=== PATIENT | male | born 1970 ===

== ENCOUNTER 2017-07-26 10:13 | Inpatient (IN) | payer MEDICARE, MEDICAID ==
[~2017-07-26] VITALS: Ht 165.1 cm; Wt 59.0 kg
[2017-07-26] MEDS ORDERED: DuoNeb 0.5-3(2.5)mg/3ml neb HHN PRN (15:00)
[2017-07-26] MEDS ORDERED: Nitroglycerin Subl 0.4mg tab (Bottle Of 25) SL PRN (15:00)
[2017-07-26] MEDS ORDERED: Miralax 17gm pkt ORAL PRN (15:00)
[2017-07-26] MEDS: Morphine Sulfate 2mg/ml Inj IVP PRN (15:59)
[2017-07-26 16:00] VITALS: BP 123/76
[2017-07-26] MEDS: Cefepime HCl 2 GM in D5W 110 ML IV SCH (17:22)
--- NOTE | 2017-07-26 19:07 | History & Physical ---
History and Physical History & Physicial Dictated for Int Med-Dr Sheridan no. [id number]. APRIL VERGARA Jul 26, 2017 19:07
--- NOTE | 2017-07-26 19:14 | Cardiology Progress Note ---
Assessment/Plan Assessment/Plan The patient is seen and examined, full consult note will be dictated shortly. Objective Last 24 Hour Vital Signs Date Time Temp Pulse Resp B/P (MAP) Pulse Ox O2 Delivery O2 Flow Rate FiO2 07/26/17 16:00 98.4 89 18 123/76 99 Room Air Intake and Output 07/26/17 07/27/17 19:00 07:00 Intake Total 350 ml Balance 350 ml Intake Oral 240 ml IV Total 110 ml SHELLIE ORTIZ Jul 26, 2017 19:14
[2017-07-26 20:35] LABS: TROPONIN I < 0.30 ng/mL (<=0.30)
[2017-07-26 21:00] VITALS: BP 142/90
--- NOTE | 2017-07-26 21:49 | Consultation ---
Consult Note Consult Note ID DIC # [id number] EMERITA CLAUDIO M.D. Jul 26, 2017 21:49
[2017-07-26] MEDS: Tobradex Opth Susp 2.5ml LEFT EYE SCH (22:00)
[2017-07-26] MEDS: Aspirin EC 81mg tab ORAL SCH (22:36)
[2017-07-26] MEDS: Heparin 5000 units/ml inj SUBQ SCH (22:37)
--- NOTE | 2017-07-26 23:03 | Consultation ---
History of Present Illness General Date patient seen: Jul 26, 2017 Referring physician: Dr Tinoco Reason for Consultation: Inpatient management Present Illness HPI 47 year old male with hx of HIV [place] [facility] of right eye pain and swelling. he had a trauma to the forehead during playing volleyball a few ew days ago , the patient developed swelling of the forehead extending to the left orbital area associated with swelling of the upper lid. He was seen by ophthalmology and ID in ER already and admitted for further treatment. Allergies: Coded Allergies: NO KNOWN ALLERGIES (Verified Allergy, Unknown, 07/26/17) Patient History Healthcare decision maker N Resuscitation status Full Code Advanced Directive on File Past Medical/Surgical History Past Medical/Surgical History: (1) HIV disease Review of Systems All Other Systems: negative except mentioned in HPI Physical Exam General Appearance: WD/WN, no apparent distress Lines, tubes and drains: peripheral, central line HEENT: other - L orbital swelling, no spontanous openning of left eye Neck: non-tender Respiratory/Chest: chest wall non-tender, lungs clear Cardiovascular/Chest: normal peripheral pulses, normal rate Abdomen: normal bowel sounds, soft Extremities: normal range of motion, non-pitting Last 24 Hour Vital Signs Date Time Temp Pulse Resp B/P (MAP) Pulse Ox O2 Delivery O2 Flow Rate FiO2 07/26/17 21:00 98.0 88 21 142/90 98 Room Air 07/26/17 20:31 88 16 Room Air 07/26/17 16:00 98.4 89 18 123/76 99 Room Air Intake and Output 07/26/17 07/27/17 19:00 07:00 Intake Total 350 ml Balance 350 ml Intake Oral 240 ml IV Total 110 ml Laboratory Tests Test 07/26/17 20:00 Troponin I < 0.30 ng/mL (<=0.30) Height (Feet): 5 Height (Inches): 5.00 Weight (Pounds): 130 Medications Current Medications Medications (Trade) Dose Ordered Sig/Kelvin Route PRN Reason Start Time Stop Time Status Last Admin Dose Admin Acetaminophen (Tylenol) 650 mg Q4H PRN ORAL fever 07/26/17 15:00 08/25/17 14:59 Albuterol/ Ipratropium (DuoNeb 0.5-3(2.5)mg/3ml) 3 ml Q4H PRN HHN Shortness of Breath 07/26/17 15:00 07/31/17 14:59 Aspirin (Ecotrin) 81 mg DAILY ORAL 07/26/17 21:00 08/25/17 20:59 07/26/17 22:36 Cefepime HCl 2 gm/ Dextrose 110 ml @ 220 mls/hr Q12HR@0400,1600 IV 07/26/17 17:30 08/02/17 17:29 07/26/17 17:22 Clopidogrel Bisulfate (Plavix) 75 mg DAILY ORAL 07/26/17 21:00 08/25/17 20:59 07/26/17 22:36 Dextrose (Dextrose 50%) STAT PRN IV Hypoglycemia 07/26/17 15:00 08/25/17 14:59 Heparin Sodium (Porcine) (Heparin 5000 units/ml) 5,000 units EVERY 12 HOURS SUBQ 07/26/17 21:00 08/25/17 20:59 07/26/17 22:37 Morphine Sulfate (Morphine Sulfate) 2 mg Q4H PRN IVP Moderate Pain (Pain Scale 4-6) 07/26/17 15:00 08/02/17 14:59 07/26/17 15:59 Nitroglycerin (Ntg) 0.4 mg Every 5 Minutes PRN SL Prn Chest Pain 07/26/17 15:00 08/25/17 14:59 Ondansetron HCl (Zofran) 4 mg Q6H PRN IVP Nausea & Vomiting 07/26/17 15:00 08/25/17 14:59 Polyethylene Glycol (Miralax) 17 gm DAILYPRN PRN ORAL Constipation 07/26/17 15:00 08/25/17 14:59 Temazepam (Restoril) 15 mg HSPRN PRN ORAL Insomnia 07/26/17 15:00 08/02/17 14:59 07/26/17 22:15 Tobramycin/ Dexamethasone (Tobradex Opth Susp) 1 drop FOUR TIMES A DAY LEFT EYE 07/26/17 22:00 08/25/17 21:59 07/26/17 22:00 Vancomycin HCl (Vanco rx to dose) 1 ea DAILY PRN MISC PRN RX PROTOCOL 07/26/17 17:00 08/25/17 16:59 Vancomycin HCl 1 gm/Dextrose 250 ml @ 167.007 mls/hr Q8HR@0200,1000,1800 IVPB 07/26/17 18:00 07/31/17 17:59 07/26/17 18:06 Assessment/Plan Problem List: (1) Cellulitis ICD Codes: L03.90 - Cellulitis, unspecified SNOMED: 735602146 (2) HIV disease ICD Codes: B20 - Human immunodeficiency virus [HIV] disease SNOMED: 31552286 Assessment/Plan IV antibiotics by Id check cultures check wbc symptomatic treatment KOKO CHUA Jul 26, 2017 23:03
[2017-07-27] VITALS: BP 126/78
[2017-07-27] MEDS ORDERED: Vancomycin 1 GM in D5W 275 ML IV SCH (00:30)
[2017-07-27] MEDS: Cefepime HCl 2 GM in D5W 110 ML IV SCH ×2 (03:51→16:01)
[2017-07-27 04:00] VITALS: BP 124/78
--- NOTE | 2017-07-27 04:30 | History and Physical Report ---
DATE OF ADMISSION: 07/26/2017 CHIEF COMPLAINT: The patient is a 47-year-old male, who presents with chief complaint of left eye pain and swelling. HISTORY OF PRESENT ILLNESS: Began 8 days prior to admission. The patient scratched his forehead on a tree branch. The patient states the left eye has become increasingly swollen. This morning he awoke and was unable to open his eye. His eye was swollen shut. The patient denies discharge. The patient denies fevers or chills. The patient initially presented to [facility] emergency room. The patient is transferred to [facility] for insurance purposes. The patient presents today with chief complaint of left orbital cellulitis. PAST MEDICAL HISTORY: Significant for: 1. Human immunodeficiency virus, diagnosed in 1989. Current T-cell count is 475. Viral load is undetectable. 2. Prediabetes. 3. Hypercholesterolemia. 4. Hypertension. 5. Coronary artery disease, status post stent placement x4. PAST SURGICAL HISTORY: The patient denies. CURRENT MEDICATIONS: 1. Losartan 50 mg one tablet p.o. daily. 2. Pravachol 40 mg one tablet p.o. daily. 3. Gemfibrozil 600 mg one tablet p.o. twice daily. 4. Vitamin B-complex. 5. Isentress 400 mg one tablet p.o. twice daily. 6. Multivitamin with iron one tablet p.o. daily. 7. Brilinta 90 mg one tablet p.o. daily. 8. Aspirin 325 mg one tablet p.o. daily. 9. Plavix 75 mg one tablet p.o. daily. 10. Norvir 100 mg one tablet p.o. daily. 11. Truvada 200/300 mg one tablet p.o. daily. 12. Nitroglycerin 0.4 mg sublingual p.r.n. ALLERGIES: To Viram[employer]. SOCIAL HISTORY: The patient is a . The patient's of breast cancer 4 years previously. The patient admits to tobacco use of one-quarter pack per day. The patient admits to occasional alcohol use. The patient denies other drug abuse. REVIEW OF SYSTEMS: Constitutional: The patient denies weight loss or weight gain. The patient denies fevers or chills. HEENT: The patient denies ear or throat pain. The patient complains of left eye pain and swelling as above. Cardiovascular: The patient denies palpitations or chest pain. Chest: The patient denies wheeze or shortness of breath. Abdominal: The patient denies nausea, vomiting, diarrhea, or constipation. Genitourinary: The patient denies dysuria or increased frequency of urination. Neuromuscular: The patient denies seizures or generalized weakness. PHYSICAL EXAMINATION: VITAL SIGNS: Temperature 98.4 degrees, respirations 18, pulse 89, and blood pressure 150/76. GENERAL: The patient is well-developed, well-nourished male, in no apparent distress. HEENT: Eyes, pupils on the right is equal and responsive to light and accommodation. Extraocular movements are intact. Left eye is swollen shut. Left eye pupil is equal and responsive to light and accommodation. Extraocular movements are intact. NECK: Supple without lymphadenopathy. CHEST: Lungs are clear to auscultation bilaterally without wheezes or rales. CARDIOVASCULAR: Regular rhythm and rate. S1 and S2 are normal without murmurs, rubs, or gallops. ABDOMEN: Soft, nontender, and nondistended. Positive bowel sounds. No evidence of hepatosplenomegaly. Currently, no rebound or guarding noted. EXTREMITIES: Negative for clubbing, cyanosis, or edema. RECTAL: Refused. GENITAL: Refused. NEUROLOGIC: Cranial nerves II through XII are grossly intact without focal deficits. Motor strength is 5/5 bilaterally. Deep tendon reflexes are 2+ plantar. LABORATORY AND DIAGNOSTIC DATA: CT scan of the head without contrast revealed left periorbital soft tissue swelling and chronic sinus disease. There was no acute intracranial hemorrhage or fracture. WBC 8.8, hemoglobin 16.6, hematocrit 46.5, and platelets 230,000. Sodium 135, potassium 3.6, chloride 103, CO2 23, BUN 10, creatinine 0.82, and glucose 104. Liver function tests are within normal limits. ASSESSMENT: This is a 47-year-old male: 1. Left periorbital cellulitis. 2. Human immunodeficiency virus. 3. Hypertension. 4. Hypercholesterolemia. 5. Coronary artery disease. TREATMENT: 1. Left periorbital cellulitis. The patient has been started empirically on intravenous vancomycin and cefepime. An Ophthalmology consultation was obtained with Dr. Sauer. An Infectious Disease consultation is pending with Dr. Green given the patient is human immunodeficiency virus positive. 2. Hypertension. Continue Cozaar as above. 3. Hypercholesteremia. Continue Lopid and Pravachol as above. 4. Coronary artery disease. Continue aspirin and Plavix as above. Michel Tinoco M.D. DR: ARMAND JOB#: [id number] CC:
--- NOTE | 2017-07-27 05:00 | Consultation ---
DATE OF CONSULTATION: 07/26/2017 CARDIOLOGY CONSULTATION CONSULTING PHYSICIAN: Aman Thurman M.D. REFERRING PHYSICIAN: Michel Tinoco M.D. REASON FOR CONSULTATION: Management of chest pain. History of Present Illness: The patient is a very unfortunate 47-year-old gentleman who is transferred from [facility] where he visited initially for left periorbital pain and swelling for several days. Apparently, the left orbital pain started after he had an injury to the left periorbital area while playing basketball. The patient was diagnosed with cellulitis from [facility]. He also had some chest pain and in view of history of coronary artery disease and history of percutaneous coronary intervention in the past, Cardiology consultation was made at the request of Dr. Tinoco for evaluation and management of this condition. He states that the chest pain was somewhat related to his left eye pain. He states that he uses alcohol only on the weekends and does not do drugs or tobacco. His initial evaluation in the [facility] showed negative troponin-I level of less than 0.2. His beta-natriuretic peptide was also . A 12-lead electrocardiogram showed sinus rhythm at a rate of 89 with no ectopy or acute ST changes. He was transferred to this facility for further evaluation and management due to insurance purposes. PAST MEDICAL HISTORY: 1. History of HIV positive. 2. History of CAD, status post four stents placement, two at [facility] and two at [facility]. 3. Hypertension. 4. Hyperlipidemia. 5. Prediabetes. Medications: List of medications, losartan 50 mg p.o. daily, pravastatin 40 mg p.o. daily, gemfibrozil 600 mg twice daily, vitamin B-complex one tablet daily, Isentress 400 mg twice daily, multivitamin one tablet p.o. daily, fish oil 4000 mg p.o. daily, Brilinta 90 mg daily, aspirin 325 mg daily, Plavix 75 mg daily, Norvir 100 mg p.o. daily, Truvada 200-300 mg one tablet daily, and nitroglycerin 0.4 mg sublingual q.5 minutes p.r.n. chest pain. Social History: He is single, and uses alcohol on the weekends. Denies any tobacco or illicit drug use. He is a former smoker, although quit in January 2009. In the records from [facility], he admitted to using beer six packs per day. Review Of Systems: HEENT: Denies any headache. Pain in the left eye, swollen and pressure over the left orbital area. There is also edema around the orbital area. Constitutional: Denies any fever, chills, night sweats, or weight loss. Cardiovascular: Chest pain as mentioned above, sharp, short lasting. Currently, chest pain free. Denies any shortness of breath, PND, orthopnea, or leg swelling. Pulmonary: Denies any cough, hemoptysis, or wheezing. Gastrointestinal: Denies any nausea, vomiting, diarrhea, constipation, abdominal pain, or GI bleeding. Genitourinary: Denies any hematuria, dysuria, or incontinence. Neurology: Denies any motor dysfunction, sensory deficit, or altered speech. PHYSICAL EXAMINATION: Vital Signs: Blood pressure is 123/76, pulse of 89, temperature 98.4 degrees Fahrenheit, respirations of 18, and O2 saturation 99% on room air. General: This is a very pleasant 47-year-old gentleman, in no apparent respiratory distress. Alert and oriented x4. HEENT: Atraumatic and normocephalic. Pupils are equal, round, and reactive to light and accommodation. Extraocular muscles are intact. There is swelling, edema, redness, and warmth associated with vesicular rash over the left frontal area of the scalp extending to the left temporal area. The entire left globe is edematous. Neck: JVP is less than 5 cm. No carotid bruits. Carotid upstrokes 2+ bilaterally. Cardiovascular: Normal S1 and S2. Regular rate and rhythm. No murmurs, gallops, or rubs. PMI is at the fourth intercostal space at the midclavicular line. LUNGS: Clear to auscultation bilaterally. Abdomen: Soft, nontender, and nondistended. No hepatosplenomegaly. Positive bowel sounds. EXTREMITIES: No evidence of edema, clubbing, or cyanosis. Laboratory and diagnostic Data: Laboratory findings, WBC was 8.8, hemoglobin was 16.6, hematocrit 46.5, and platelet count was 230,000. Sodium was 135, potassium is 3.6, chloride 103, bicarbonate 23, BUN of 10, and creatinine of 0.82. Troponin-I less than 0.02. INR is 0.9. BNP was 15. Lipase is 29. ECG, sinus rhythm at a rate of 89 with no ectopy and no acute ST-T wave abnormalities. Head CT showed periorbital soft tissue swelling, sinusitis, and no acute intracranial injury. Assessment And Plan: The patient is a very unfortunate 47-year-old gentleman, seen in Cardiology consultation at the request of Dr. Tinoco. Chest pain, atypical, most likely secondary to the injury that he had during the basketball game, had trauma to the chest wall. He does not appear to have ischemic heart disease at this point. A 12-lead electrocardiogram done at [facility] showed no evidence of ST or T-wave abnormalities. His first troponin was negative. We will continue with another troponin-I level as well as 12-lead electrocardiogram. Lipid panel will be assessed in the morning. I noticed in the list of medications that the patient is on triple agents including Brilinta, high-dose aspirin, and Plavix. This combination increased dramatically the risk of bleeding. I would put a hold on Brilinta and decrease dose of aspirin to 81 mg daily. He should even continue with dual-antiplatelet therapy with low-dose aspirin. I would like to thank, Dr. Tinoco, for allowing me to participate in the care of this patient. Aman Thurman M.D. DR: FLORENTINO JOB#: [id number] CC:
--- NOTE | 2017-07-27 05:30 | Consultation ---
DATE OF CONSULTATION: INFECTIOUS DISEASES CONSULTATION CONSULTING PHYSICIAN: Yovany Green M.D. REFERRING PHYSICIAN: Ede Sheridan M.D. Reason For Consultation: Evaluation of the patient for periorbital cellulitis, HIV, and antibiotic management. History Of Present Illness: The patient is a 47-year-old male with multiple medical problems as listed below, who was admitted to this medical center due to the facial swelling. An Infectious Diseases consultation has been requested for further evaluation of the patient and antibiotic management. The patient had trauma to the forehead during playing volleyball. Few days later, the patient developed swelling of the forehead extending to the left orbital area associated with swelling of the upper lip. The patient came to the hospital for further care. PAST MEDICAL HISTORY: 1. History of heart condition, ? in nature of that. 2. History of hyperlipidemia. 3. History of diabetes. 4. History of alcohol abuse. 5. History of human immunodeficiency virus (CD4 count over 400 and undetectable viral load) on HIV medication. ALLERGIES: No known drug allergies. SOCIAL HISTORY: As mentioned above. FAMILY HISTORY: Noncontributory. Review Of Systems: A 10-point review was done and except what is mentioned has been negative. PHYSICAL EXAMINATION: Vital Signs: Temperature is 98.4 degrees, pulse 86, respiratory rate 18, and blood pressure 140/90. HEENT: The patient has erythema and tenderness over the left forehead extending to the upper eyelid, which is swollen. Eyes did not appear to have conjunctivitis. NECK: No lymphadenopathy. CHEST: Coarse breathing sounds. HEART: S1 and S2. ABDOMEN: Soft and nontender. EXTREMITIES: No cyanosis at this time. NEUROLOGIC: Awake and alert. Nonfocal. LABORATORY DATA: Labs are pending. ASSESSMENT: The patient is a 47-year-old male with: 1. Periorbital/facial cellulitis due to the fall and pain over the forehead. 2. Wound over the forehead without drainage. PLAN: 1. We will continue the patient on IV vancomycin and cefepime. 2. Monitor CBC. 3. Monitor BMP. 4. We will ask the patient to bring his home HIV medication to resume. Based on the patient's clinical course and labs, we will do further recommendations. Thank you, Dr. Sheridan, for allowing me to participate in the care of this patient. I will follow the patient with you during this hospitalization. Yovany Green M.D. DR: KAITLYN JOB#: [id number] CC:
[2017-07-27 06:21] LABS: BASOPHILS % (AUTO) 1.2 % (0.0-2.0); EOSINOPHILS % (AUTO) 1.5 % (0.0-3.0); LYMPHOCYTES % (AUTO) 18.4 % (20.0-45.0); MEAN CORPUSCULAR HEMOGLOBIN 35.9 PG (27.0-31.0); MEAN CORPUSCULAR HGB CONC 36.6 G/DL (32.0-36.0); MEAN CORPUSCULAR VOLUME 98 FL (80-99); MEAN PLATELET VOLUME 6.5 FL (6.5-10.1); NEUTROPHILS % (AUTO) 64.9 % (45.0-75.0); PLATELET COUNT 217 K/UL (150-450); RED BLOOD COUNT 4.82 M/UL (4.70-6.10); RED CELL DISTRIBUTION WIDTH 10.1 % (11.6-14.8)
[2017-07-27 06:41] LABS: ALANINE AMINOTRANSFERASE 17 U/L (3-41); ALBUMIN/GLOBULIN RATIO 1.2 (1.0-2.7); ANION GAP 10 (5-15); ASPARTATE AMINO TRANSFERASE 22 U/L (5-40); CALCIUM 9.8 mg/dL (8.6-10.2); CARBON DIOXIDE 27 mEQ/L (20-30); CHLORIDE 98 mEQ/L (98-107); CREATININE 0.9 mg/dL (0.7-1.2); GLOMERULAR FILTRATION RATE > 60 mL/min (>60); HEMOLYSIS 1; POTASSIUM 4.4 mEQ/L (3.4-4.9); SODIUM 135 mEQ/L (135-145); TOTAL PROTEIN 7.8 g/dL (6.6-8.7)
[2017-07-27 08:31] VITALS: BP 137/69
[2017-07-27] MEDS ORDERED: NS 550ML IV ONE (08:44)
[2017-07-27] MEDS ORDERED: Tubing IV Secondary IV ONE (08:44)
[2017-07-27] MEDS: Aspirin EC 81mg tab ORAL SCH ×2 (09:00→09:47)
[2017-07-27] MEDS: Heparin 5000 units/ml inj SUBQ SCH ×3 (09:00→20:47)
[2017-07-27] MEDS: Tobradex Opth Susp 2.5ml LEFT EYE SCH ×4 (09:46→20:46)
[2017-07-27] MEDS: Morphine Sulfate 2mg/ml Inj IVP PRN (09:47)
[2017-07-27 11:37] VITALS: BP 116/75
--- NOTE | 2017-07-27 15:42 | Pulmonology Progress Note ---
Assessment/Plan Problems: (1) Cellulitis (2) HIV disease Assessment/Plan still not able to open the eye continue abc check electrolytes Subjective ROS Limited/Unobtainable: No Constitutional: Reports: no symptoms HEENT: Repors: no symptoms Cardiovascular: Reports: no symptoms Gastrointestinal/Abdominal: Reports: no symptoms Genitourinary: Reports: no symptoms Allergies: Coded Allergies: NO KNOWN ALLERGIES (Verified Allergy, Unknown, 07/26/17) Objective Last 24 Hour Vital Signs Date Time Temp Pulse Resp B/P (MAP) Pulse Ox O2 Delivery O2 Flow Rate FiO2 07/27/17 11:37 98.2 80 19 116/75 96 Room Air 07/27/17 10:17 98.2 07/27/17 08:31 98.3 71 19 137/69 96 Room Air 07/27/17 07:15 73 16 Room Air 07/27/17 06:16 97.5 07/27/17 04:00 101.1 90 18 124/78 99 Room Air 07/27/17 00:00 97.9 95 20 126/78 96 Room Air 07/26/17 21:00 98.0 88 21 142/90 98 Room Air 07/26/17 20:31 88 16 Room Air 07/26/17 16:00 98.4 89 18 123/76 99 Room Air Intake and Output 07/27/17 07/28/17 19:00 07:00 Intake Total 560 ml Output Total 500 ml Balance 60 ml Intake Oral 560 ml Output Urine Total 500 ml General Appearance: WD/WN, no acute distress HEENT: normocephalic, atraumatic Respiratory/Chest: chest wall non-tender, lungs clear Cardiovascular: normal peripheral pulses Abdomen: normal bowel sounds, soft, non tender Extremities: no cyanosis, no clubbing Skin: no rash Neurologic/Psychiatric: manager rfid II-XII grossly normal, abnormal gait Lymphatic: no neck adenopathy Laboratory Tests 07/26/17 20:00: Troponin I < 0.30 07/27/17 05:30: White Blood Count 8.0, Red Blood Count 4.82, Hemoglobin 17.3, Hematocrit 47.3, Mean Corpuscular Volume 98, Mean Corpuscular Hemoglobin 35.9H, Mean Corpuscular Hemoglobin Concent 36.6H, Red Cell Distribution Width 10.1L, Platelet Count 217 , Mean Platelet Volume 6.5, Neutrophils (%) (Auto) 64.9, Lymphocytes (%) (Auto) 18.4L, Monocytes (%) (Auto) 14.0H, Eosinophils (%) (Auto) 1.5, Basophils (%) ( Auto) 1.2, Sodium Level 135, Potassium Level 4.4, Chloride Level 98, Carbon Dioxide Level 27, Anion Gap 10, Blood Urea Nitrogen 7, Creatinine 0.9, Estimat Glomerular Filtration Rate > 60, Glucose Level 162H, Calcium Level 9.8, Total Bilirubin 0.5, Aspartate Amino Transf (AST/SGOT) 22, Alanine Aminotransferase ( ALT/SGPT) 17, Alkaline Phosphatase 98, Total Protein 7.8, Albumin 4.3, Globulin 3.5, Albumin/Globulin Ratio 1.2 Current Medications Medications (Trade) Dose Ordered Sig/Kelvin Route PRN Reason Start Time Stop Time Status Last Admin Dose Admin Acetaminophen (Tylenol) 650 mg Q4H PRN ORAL fever 07/26/17 15:00 08/25/17 14:59 07/27/17 05:17 Albuterol/ Ipratropium (DuoNeb 0.5-3(2.5)mg/3ml) 3 ml Q4H PRN HHN Shortness of Breath 07/26/17 15:00 07/31/17 14:59 Aspirin (ASA) 81 mg DAILY ORAL 07/28/17 09:00 08/27/17 08:59 Cefepime HCl 2 gm/ Dextrose 110 ml @ 220 mls/hr Q12HR@0400,1600 IV 07/26/17 17:30 08/02/17 17:29 07/27/17 03:51 Clopidogrel Bisulfate (Plavix) 75 mg DAILY ORAL 07/26/17 21:00 08/25/17 20:59 07/26/17 22:36 Dextrose (Dextrose 50%) STAT PRN IV Hypoglycemia 07/26/17 15:00 08/25/17 14:59 Heparin Sodium (Porcine) (Heparin 5000 units/ml) 5,000 units EVERY 12 HOURS SUBQ 07/26/17 21:00 08/25/17 20:59 07/26/17 22:37 Morphine Sulfate (Morphine Sulfate) 2 mg Q4H PRN IVP Moderate Pain (Pain Scale 4-6) 07/26/17 15:00 08/02/17 14:59 07/27/17 09:47 Nitroglycerin (Ntg) 0.4 mg Every 5 Minutes PRN SL Prn Chest Pain 07/26/17 15:00 08/25/17 14:59 Ondansetron HCl (Zofran) 4 mg Q6H PRN IVP Nausea & Vomiting 07/26/17 15:00 08/25/17 14:59 Polyethylene Glycol (Miralax) 17 gm DAILYPRN PRN ORAL Constipation 07/26/17 15:00 08/25/17 14:59 Temazepam (Restoril) 15 mg HSPRN PRN ORAL Insomnia 07/26/17 15:00 08/02/17 14:59 07/26/17 22:15 Tobramycin/ Dexamethasone (Tobradex Opth Susp) 1 drop FOUR TIMES A DAY LEFT EYE 07/26/17 22:00 08/25/17 21:59 07/27/17 12:41 Vancomycin HCl (Vanco rx to dose) 1 ea DAILY PRN MISC PRN RX PROTOCOL 07/26/17 17:00 08/25/17 16:59 Vancomycin HCl 1 gm/Dextrose 250 ml @ 167.007 mls/hr Q8HR@0200,1000,1800 IVPB 07/26/17 18:00 07/31/17 17:59 07/27/17 09:47 KOKO CHUA Jul 27, 2017 15:42
[2017-07-27 16:07] VITALS: BP 141/96
--- NOTE | 2017-07-27 17:53 | Cardiology Report ---
APPROVED REPORT EXAM: Two-dimensional and M-mode echocardiogram with Doppler and color Doppler. INDICATION CAD M-Mode DIMENSIONS IVSd1.8 (0.7-1.1cm)Left Atrium (MM)4.0 (1.6-4.0cm) LVDd3.7 (3.5-5.6cm)Aortic Root3.0 (2.0-3.7cm) PWd1.6 (0.7-1.1cm)Aortic Cusp Exc.1.7 (1.5-2.0cm) LVDs2.6 (2.5-4.0cm) PWs2.1 cm Normal left ventricular chamber size. Septal hypokinesis. Left ventricular ejection fraction estimated to be 45-50 %. Mild left ventricular hypertrophy. Anterior Echo-free space, may be due to pericardial fat or effusion. All other cardiac chamber sizes are within normal limits. Moderate focal aortic valve sclerosis with adequate cusp excursion. Thickened mitral valve leaflets with normal excursion. Mitral annulus and aortic root calcification. Pulmonic valve not well visualized. Normal tricuspid valve structure. IVC at normal size with physiologic collapse. A color flow and spectral Doppler study was performed and revealed: Trace aortic regurgitation. Trace mitral regurgitation. reduced left ventricular relaxation c/w mild diastolic dysfunction. Trace tricuspid regurgitation. Tricuspid systolic velocities suggests peak right ventricular systolic pressure of 16 mmHg.
--- NOTE | 2017-07-27 18:00 | Internal Med Progress Note ---
Subjective Date of Service: Jul 27, 2017 Physician Name Michel Vergara Attending Physician Ede Sheridan MD Current Medications Medications (Trade) Dose Ordered Sig/Kelvin Route PRN Reason Start Time Stop Time Status Last Admin Dose Admin Acetaminophen (Tylenol) 650 mg Q4H PRN ORAL fever 07/26/17 15:00 08/25/17 14:59 07/27/17 05:17 Albuterol/ Ipratropium (DuoNeb 0.5-3(2.5)mg/3ml) 3 ml Q4H PRN HHN Shortness of Breath 07/26/17 15:00 07/31/17 14:59 Aspirin (ASA) 81 mg DAILY ORAL 07/28/17 09:00 08/27/17 08:59 Cefepime HCl 2 gm/ Dextrose 110 ml @ 220 mls/hr Q12HR@0400,1600 IV 07/26/17 17:30 08/02/17 17:29 07/27/17 16:01 Clopidogrel Bisulfate (Plavix) 75 mg DAILY ORAL 07/26/17 21:00 08/25/17 20:59 07/26/17 22:36 Dextrose (Dextrose 50%) STAT PRN IV Hypoglycemia 07/26/17 15:00 08/25/17 14:59 Heparin Sodium (Porcine) (Heparin 5000 units/ml) 5,000 units EVERY 12 HOURS SUBQ 07/26/17 21:00 08/25/17 20:59 07/26/17 22:37 Morphine Sulfate (Morphine Sulfate) 2 mg Q4H PRN IVP Moderate Pain (Pain Scale 4-6) 07/26/17 15:00 08/02/17 14:59 07/27/17 09:47 Nitroglycerin (Ntg) 0.4 mg Every 5 Minutes PRN SL Prn Chest Pain 07/26/17 15:00 08/25/17 14:59 Ondansetron HCl (Zofran) 4 mg Q6H PRN IVP Nausea & Vomiting 07/26/17 15:00 08/25/17 14:59 Polyethylene Glycol (Miralax) 17 gm DAILYPRN PRN ORAL Constipation 07/26/17 15:00 08/25/17 14:59 Temazepam (Restoril) 15 mg HSPRN PRN ORAL Insomnia 07/26/17 15:00 08/02/17 14:59 07/26/17 22:15 Tobramycin/ Dexamethasone (Tobradex Opth Susp) 1 drop FOUR TIMES A DAY LEFT EYE 07/26/17 22:00 08/25/17 21:59 07/27/17 12:41 Vancomycin HCl (Vanco rx to dose) 1 ea DAILY PRN MISC PRN RX PROTOCOL 07/26/17 17:00 08/25/17 16:59 Vancomycin HCl 1 gm/Dextrose 250 ml @ 167.007 mls/hr Q8HR@0200,1000,1800 IVPB 07/26/17 18:00 07/31/17 17:59 07/27/17 09:47 Allergies: Coded Allergies: NO KNOWN ALLERGIES (Verified Allergy, Unknown, 07/26/17) ROS Limited/Unobtainable: No Constitutional: Reports: no symptoms HEENT: Reports: eye pain Cardiovascular: Reports: no symptoms Respiratory: Reports: no symptoms Gastrointestinal/Abdominal: Reports: no symptoms Genitourinary: Reports: no symptoms Neurologic/Psychiatric: Reports: no symptoms Subjective 47 YO M admitted with left eye pain and swelling. Now periorbital cellulitis. Cover for Int Med-Dr Sheridan Objective Last Vital Signs Date Time Temp Pulse Resp B/P (MAP) Pulse Ox O2 Delivery O2 Flow Rate FiO2 07/27/17 16:07 97.6 64 21 141/96 95 Room Air General Appearance: WD/WN, no apparent distress, alert EENT: PERRL/EOMI, other - Left periorbital swelling Neck: non-tender, normal alignment, supple, normal inspection Cardiovascular: normal peripheral pulses, normal rate, regular rhythm, regularly irregular, no gallop/murmur, no JVD Respiratory/Chest: chest wall non-tender, lungs clear, normal breath sounds, no respiratory distress, no accessory muscle use Abdomen: normal bowel sounds, non tender, soft, no organomegaly, no mass Extremities: normal range of motion 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, no motor/sensory deficits Skin: normal pigmentation, warm/dry Laboratory Tests Test 07/26/17 20:00 07/27/17 05:30 07/27/17 17:00 Troponin I < 0.30 ng/mL (<=0.30) White Blood Count 8.0 K/UL (4.8-10.8) Red Blood Count 4.82 M/UL (4.70-6.10) Hemoglobin 17.3 G/DL (14.2-18.0) Hematocrit 47.3 % (42.0-52.0) Mean Corpuscular Volume 98 FL (80-99) Mean Corpuscular Hemoglobin 35.9 PG (27.0-31.0) H Mean Corpuscular Hemoglobin Concent 36.6 G/DL (32.0-36.0) H Red Cell Distribution Width 10.1 % (11.6-14.8) L Platelet Count 217 K/UL (150-450) Mean Platelet Volume 6.5 FL (6.5-10.1) Neutrophils (%) (Auto) 64.9 % (45.0-75.0) Lymphocytes (%) (Auto) 18.4 % (20.0-45.0) L Monocytes (%) (Auto) 14.0 % (1.0-10.0) H Eosinophils (%) (Auto) 1.5 % (0.0-3.0) Basophils (%) (Auto) 1.2 % (0.0-2.0) Sodium Level 135 mEQ/L (135-145) Potassium Level 4.4 mEQ/L (3.4-4.9) Chloride Level 98 mEQ/L (98-107) Carbon Dioxide Level 27 mEQ/L (20-30) Anion Gap 10 (5-15) Blood Urea Nitrogen 7 mg/dL (7-23) Creatinine 0.9 mg/dL (0.7-1.2) Estimat Glomerular Filtration Rate > 60 mL/min (>60) Glucose Level 162 mg/dL (74-106) H Calcium Level 9.8 mg/dL (8.6-10.2) Total Bilirubin 0.5 mg/dL (0.0-1.2) Aspartate Amino Transf (AST/SGOT) 22 U/L (5-40) Alanine Aminotransferase (ALT/SGPT) 17 U/L (3-41) Alkaline Phosphatase 98 U/L (40-129) Total Protein 7.8 g/dL (6.6-8.7) Albumin 4.3 g/dL (3.5-5.2) Globulin 3.5 g/dL Albumin/Globulin Ratio 1.2 (1.0-2.7) Vancomycin Level Trough 13.0 ug/mL (5.0-12.0) H Intake and Output 07/27/17 07/28/17 19:00 07:00 Intake Total 560 ml Output Total 500 ml Balance 60 ml Intake Oral 560 ml Output Urine Total 500 ml Assessment/Plan Problem List: (1) Periorbital cellulitis of left eye Assessment & Plan: See ID note. See ophthalmology note. Cont IV vanco adn cefepime. Cont tobradex eye drops (2) HIV (human immunodeficiency virus infection) Assessment & Plan: Cont HAART per ID (3) HTN (hypertension) (4) Hypercholesteremia (5) Coronary artery disease Assessment & Plan: Cont plavix and ASA. Status: progressing MICHEL VERGARA Jul 27, 2017 18:00
--- NOTE | 2017-07-27 18:27 | Infectious Diseases Prog Note ---
Assessment/Plan Assessment/Plan ASSESSMENT: The patient is a 47-year-old male with: History of human immunodeficiency virus (CD4 count over 400 and undetectable viral load) on HIV medication. Periorbital/facial cellulitis due to the fall and pain over the forehead. Wound over the forehead without drainage. Facial shingles History of heart condition, ? in nature of that. Hyperlipidemia. DM history of alcohol abuse. PLAN: will continue the patient on IV vancomycin d# 2 and Acyclovir d# , DC Cefepime. will resume his home HIV medication to resume.( Tivicay and Descovy ) Monitor CBC. Monitor BMP. Isolation ( contact and Airborne ) Subjective Constitutional: Denies: no symptoms, fever, chills, fatigue, anorexia, drenching sweats, other Allergies: Coded Allergies: NO KNOWN ALLERGIES (Verified Allergy, Unknown, 07/26/17) Objective Vital Signs Last 24 Hour Vital Signs Date Time Temp Pulse Resp B/P (MAP) Pulse Ox O2 Delivery O2 Flow Rate FiO2 07/27/17 16:07 97.6 64 21 141/96 95 Room Air 07/27/17 11:37 98.2 80 19 116/75 96 Room Air 07/27/17 10:17 98.2 07/27/17 08:31 98.3 71 19 137/69 96 Room Air 07/27/17 07:15 73 16 Room Air 07/27/17 06:16 97.5 07/27/17 04:00 101.1 90 18 124/78 99 Room Air 07/27/17 00:00 97.9 95 20 126/78 96 Room Air 07/26/17 21:00 98.0 88 21 142/90 98 Room Air 07/26/17 20:31 88 16 Room Air Height (Feet): 5 Height (Inches): 5.00 Weight (Pounds): 130 HEENT: anicteric Respiratory/Chest: no respiratory distress Cardiovascular: regularly irregular Abdomen: non distended Skin: rash - facial : Vesicles Laboratory Tests Test 07/26/17 20:00 07/27/17 05:30 07/27/17 17:00 Troponin I < 0.30 ng/mL (<=0.30) White Blood Count 8.0 K/UL (4.8-10.8) Red Blood Count 4.82 M/UL (4.70-6.10) Hemoglobin 17.3 G/DL (14.2-18.0) Hematocrit 47.3 % (42.0-52.0) Mean Corpuscular Volume 98 FL (80-99) Mean Corpuscular Hemoglobin 35.9 PG (27.0-31.0) H Mean Corpuscular Hemoglobin Concent 36.6 G/DL (32.0-36.0) H Red Cell Distribution Width 10.1 % (11.6-14.8) L Platelet Count 217 K/UL (150-450) Mean Platelet Volume 6.5 FL (6.5-10.1) Neutrophils (%) (Auto) 64.9 % (45.0-75.0) Lymphocytes (%) (Auto) 18.4 % (20.0-45.0) L Monocytes (%) (Auto) 14.0 % (1.0-10.0) H Eosinophils (%) (Auto) 1.5 % (0.0-3.0) Basophils (%) (Auto) 1.2 % (0.0-2.0) Sodium Level 135 mEQ/L (135-145) Potassium Level 4.4 mEQ/L (3.4-4.9) Chloride Level 98 mEQ/L (98-107) Carbon Dioxide Level 27 mEQ/L (20-30) Anion Gap 10 (5-15) Blood Urea Nitrogen 7 mg/dL (7-23) Creatinine 0.9 mg/dL (0.7-1.2) Estimat Glomerular Filtration Rate > 60 mL/min (>60) Glucose Level 162 mg/dL (74-106) H Calcium Level 9.8 mg/dL (8.6-10.2) Total Bilirubin 0.5 mg/dL (0.0-1.2) Aspartate Amino Transf (AST/SGOT) 22 U/L (5-40) Alanine Aminotransferase (ALT/SGPT) 17 U/L (3-41) Alkaline Phosphatase 98 U/L (40-129) Total Protein 7.8 g/dL (6.6-8.7) Albumin 4.3 g/dL (3.5-5.2) Globulin 3.5 g/dL Albumin/Globulin Ratio 1.2 (1.0-2.7) Vancomycin Level Trough 13.0 ug/mL (5.0-12.0) H Current Medications Medications (Trade) Dose Ordered Sig/Kelvin Route PRN Reason Start Time Stop Time Status Last Admin Dose Admin Acetaminophen (Tylenol) 650 mg Q4H PRN ORAL fever 07/26/17 15:00 08/25/17 14:59 07/27/17 05:17 Albuterol/ Ipratropium (DuoNeb 0.5-3(2.5)mg/3ml) 3 ml Q4H PRN HHN Shortness of Breath 07/26/17 15:00 07/31/17 14:59 Aspirin (ASA) 81 mg DAILY ORAL 07/28/17 09:00 08/27/17 08:59 Cefepime HCl 2 gm/ Dextrose 110 ml @ 220 mls/hr Q12HR@0400,1600 IV 07/26/17 17:30 08/02/17 17:29 07/27/17 16:01 Clopidogrel Bisulfate (Plavix) 75 mg DAILY ORAL 07/26/17 21:00 08/25/17 20:59 07/26/17 22:36 Dextrose (Dextrose 50%) STAT PRN IV Hypoglycemia 07/26/17 15:00 08/25/17 14:59 Heparin Sodium (Porcine) (Heparin 5000 units/ml) 5,000 units EVERY 12 HOURS SUBQ 07/26/17 21:00 08/25/17 20:59 07/26/17 22:37 Morphine Sulfate (Morphine Sulfate) 2 mg Q4H PRN IVP Moderate Pain (Pain Scale 4-6) 07/26/17 15:00 08/02/17 14:59 07/27/17 09:47 Nitroglycerin (Ntg) 0.4 mg Every 5 Minutes PRN SL Prn Chest Pain 07/26/17 15:00 08/25/17 14:59 Ondansetron HCl (Zofran) 4 mg Q6H PRN IVP Nausea & Vomiting 07/26/17 15:00 08/25/17 14:59 Polyethylene Glycol (Miralax) 17 gm DAILYPRN PRN ORAL Constipation 07/26/17 15:00 08/25/17 14:59 Temazepam (Restoril) 15 mg HSPRN PRN ORAL Insomnia 07/26/17 15:00 08/02/17 14:59 07/26/17 22:15 Tobramycin/ Dexamethasone (Tobradex Opth Susp) 1 drop FOUR TIMES A DAY LEFT EYE 07/26/17 22:00 08/25/17 21:59 07/27/17 18:19 Vancomycin HCl (Vanco rx to dose) 1 ea DAILY PRN MISC PRN RX PROTOCOL 07/26/17 17:00 08/25/17 16:59 Vancomycin HCl 1 gm/Dextrose 250 ml @ 167.007 mls/hr Q8HR@0200,1000,1800 IVPB 07/26/17 18:00 07/31/17 17:59 07/27/17 18:19 EMERITA CLAUDIO M.D. Jul 27, 2017 18:27
[2017-07-27 20:27] VITALS: BP 124/82
[2017-07-27] MEDS ORDERED: TIVICAY50 MG ORAL (21:49)
[2017-07-27] MEDS ORDERED: DESCOVY 200-251 EACH PO (21:49)
[2017-07-27] MEDS ORDERED: Acyclovir 500mg Vial IV ONE (22:56)
[2017-07-27] MEDS: Acyclovir 750 MG in NS 110 ML IV SCH (23:21)
[2017-07-28] VITALS: BP 129/75
[2017-07-28 04:00] VITALS: BP 114/72
[2017-07-28 06:46] LABS: EOSINOPHILS % (AUTO) 2.1 % (0.0-3.0); LYMPHOCYTES % (AUTO) 24.6 % (20.0-45.0); MEAN CORPUSCULAR HEMOGLOBIN 34.5 PG (27.0-31.0); MEAN CORPUSCULAR VOLUME 99 FL (80-99); MEAN PLATELET VOLUME 6.3 FL (6.5-10.1); MONOCYTES % (AUTO) 16.8 % (1.0-10.0); NEUTROPHILS % (AUTO) 55.5 % (45.0-75.0); PLATELET COUNT 190 K/UL (150-450); RED BLOOD COUNT 4.64 M/UL (4.70-6.10); RED CELL DISTRIBUTION WIDTH 9.9 % (11.6-14.8); WHITE BLOOD COUNT 7.2 K/UL (4.8-10.8)
[2017-07-28 07:12] LABS: ALANINE AMINOTRANSFERASE 18 U/L (3-41); ALBUMIN/GLOBULIN RATIO 1.2 (1.0-2.7); ANION GAP 14 (5-15); ASPARTATE AMINO TRANSFERASE 24 U/L (5-40); CALCIUM 9.1 mg/dL (8.6-10.2); CARBON DIOXIDE 25 mEQ/L (20-30); CHLORIDE 97 mEQ/L (98-107); CREATININE 0.9 mg/dL (0.7-1.2); CRP QUANT 3.7 mg/dL (< 0.5); GLOMERULAR FILTRATION RATE > 60 mL/min (>60); HEMOLYSIS 5; MAGNESIUM 2.1 mg/dL (1.7-2.5); POTASSIUM 3.7 mEQ/L (3.4-4.9); SODIUM 136 mEQ/L (135-145); TOTAL PROTEIN 7.2 g/dL (6.6-8.7)
[2017-07-28 08:00] VITALS: BP 120/71
[2017-07-28 08:38] LABS: ERYTHROCYTE SEDIMENTATION RATE 20 MM/HR (0-15)
[2017-07-28] MEDS ORDERED: [UNRECOGNIZED DRUG - REMARK] ORAL ONE (09:00)
[2017-07-28] MEDS: Aspirin Baby 81mg ORAL SCH ×2 (09:00→10:30)
[2017-07-28] MEDS ORDERED: Dolutegravir Sodium 50mg tab ORAL SCH (09:00)
[2017-07-28] MEDS: Heparin 5000 units/ml inj SUBQ SCH ×3 (09:00→21:00)
[2017-07-28] MEDS: Acyclovir 750 MG in NS 110 ML IV SCH ×2 (10:27→16:54)
[2017-07-28] MEDS: Tobradex Opth Susp 2.5ml LEFT EYE SCH ×4 (10:29→20:58)
[2017-07-28] MEDS: DESCOVY ORAL SCH (10:29)
[2017-07-28 12:00] VITALS: BP 125/68
--- NOTE | 2017-07-28 12:41 | Progress Note ---
DATE: 07/27/2017 History of present illness: The patient states that he has pain on the scalp. It looks just about the same since yesterday. There is no change in vision. The left eye feels better since he has been using the drops. Medications: Cefepime, albuterol or DuoNeb, nitroglycerin, Zofran, MiraLAX, Restoril p.r.n., TobraDex eye drops q.i.d. to the left eye, and IV vancomycin. PHYSICAL EXAMINATION: Eye: The vision in the right eye uncorrected is 20/50 and in the left eye also 20/50. The pupils are 4 to 3 OU without pupillary defect and the extraocular muscles are intact in the bilateral eye. The external eye exam revealed obvious vesicle formation along the left upper lid, forehead, as well as scalp. The erythema again did not cross the midline in these areas moving to the vesicles. There is decreased soft tissue swelling at the periocular area in the left eye. The right periocular area was within normal limits. The conjunctiva is clear and sclera and iris within normal limits. In the left eye, there was decreased injection. The cornea appeared clear bilaterally. The anterior chamber is deep and quiet bilaterally. The iris movement is within normal limits bilaterally. ASSESSMENT AND PLAN: 1. Periocular cellulitis secondary to zoster involving the D1 dermatome. The patient is to continue on his IV antibiotics as well as TobraDex eye drops and I believe or another type of IV. I will defer to Infectious Diseases for possibly adding acyclovir to his treatment for this zoster cellulitis. 2. Decreased periocular soft tissue swelling and decreased conjunctivitis in the left eye. Continue using TobraDex eye drops. I will continue to follow while the patient is in-house. Thank you very much for allowing me to participate in this very nice patient's care. If you have any questions, please do not hesitate to contact me. Michel Sauer M.D. DR: BJ JOB#: [id number] CC:
--- NOTE | 2017-07-28 12:41 | Consultation ---
DATE OF CONSULTATION: 07/26/2017 OPHTHALMOLOGY CONSULTATION Requesting Physician: This consultation is at the request of Dr. Ede Sheridan. History Of Present Illness: The patient is a very pleasant 47-year-old male, who approximately one week ago accidentally scratched his left forehead on the tree branch. He states that this caused some swelling and erythema along the forehead area that spread to his left eyelid periocularly and has been associated with discharge in the left eye. He complains of some tingling sensations on the scalp and forehead, but noticed some tenderness over the left forehead. He was initially seen at [facility] emergency room, but transferred to [facility] for further care. PAST OCULAR HISTORY: None. PAST FAMILY OCULAR HISTORY: None. PAST MEDICAL HISTORY: 1. HIV positive with T-cell count currently at 475. 2. Hypertension. 3. Coronary artery disease. 4. Hypercholesterolemia. PAST SURGICAL HISTORY: None. Medications: Upon admission, losartan, Pravachol, Brilinta, aspirin, Plavix, Norvir, Truvada, and nitroglycerin. ALLERGIES: Viramune. Social History: The patient is a . He has a tobacco history of approximately one-quarter pack per day. He drinks alcohol socially and there is no history of drug abuse. Review Of Systems: A 12-point review of systems is otherwise negative. PHYSICAL EXAMINATION: Eye: His vision in the right eye was approximately 20/60 and in the left eye approximately 20/200. The pupils were pupillary defect and the extraocular muscle movement is intact and without pain or diplopia. The lens in the right eye were within normal limits, but on the left eye, there is severe periocular soft tissue swelling with erythema. This was associated with erythema along the forehead and slightly on the scalp. None of this crossed the midline though. There were no vesicles present, but there were small bumps on the skin. The conjunctiva and sclera on the right eye was within normal limits, but there was a moderate injection nasally in the left eye at discharge. The cornea appeared clear in the right eye and it was a very difficult healing in the left eye secondary to the marked soft tissue periocular swelling. The iris and lens were within normal limits bilaterally. ASSESSMENT AND PLAN: 1. Cellulitis, periocular, left eye. None of the erythema across the midline, it is most probably zoster but yet there are no vesicles on the forehead or scalp. The patient significantly feels that this cellulitis is secondary to being scratched by a tree branch though. This may be just coincidental. 2. Conjunctivitis, left eye. Started the patient on Zyvox eye drops q.i.d. I will discuss this with the primary care team and also help monitor while the patient is in-house. Thank you very much for allowing me to participate in this very nice patient's care. If you have any questions, please do not hesitate to contact me. Michel Sauer M.D. DR: Christine JOB#: [id number] CC:
[2017-07-28] MEDS ORDERED: CALCIUM CARBON600 M1 PO (13:29)
[2017-07-28] MEDS ORDERED: LOSARTAN POTASS50 MG ORAL (13:29)
[2017-07-28] MEDS ORDERED: VITAMIN B COMP1 EAC5 PO (13:29)
[2017-07-28] MEDS ORDERED: FISH OIL 1,0001 EAC4 ORAL (13:29)
[2017-07-28] MEDS ORDERED: THERA-M TABLET1 EACH PO (13:29)
[2017-07-28] MEDS ORDERED: ASPIRIN EC81 MG ORAL (13:29)
[2017-07-28] MEDS ORDERED: VITAMIN D-32000 UNI1 PO (13:29)
[2017-07-28] MEDS ORDERED: PRAVASTATIN SOD20 M1 ORAL (13:29)
--- NOTE | 2017-07-28 15:37 | Pulmonology Progress Note ---
Assessment/Plan Problems: (1) Cellulitis (2) HIV disease Assessment/Plan opens the eye continue abc check electrolytes improving all reviewed keep isolation Subjective ROS Limited/Unobtainable: No Constitutional: Reports: no symptoms HEENT: Repors: no symptoms Respiratory: Reports: no symptoms Cardiovascular: Reports: no symptoms Allergies: Coded Allergies: NO KNOWN ALLERGIES (Verified Allergy, Unknown, 07/26/17) Objective Last 24 Hour Vital Signs Date Time Temp Pulse Resp B/P (MAP) Pulse Ox O2 Delivery O2 Flow Rate FiO2 07/28/17 12:00 98.9 95 18 125/68 98 Room Air 07/28/17 08:00 98.8 98 18 120/71 98 Room Air 07/28/17 07:20 82 20 Room Air 21 07/28/17 04:00 98.6 86 20 114/72 97 Room Air 07/28/17 00:00 98.9 87 20 129/75 97 Room Air 07/27/17 20:27 100.0 88 20 124/82 99 Room Air 07/27/17 19:15 79 16 Room Air 07/27/17 19:02 97.9 07/27/17 16:07 97.6 64 21 141/96 95 Room Air Objective feeling better, can open the eye General Appearance: WD/WN HEENT: normocephalic, atraumatic Respiratory/Chest: chest wall non-tender, lungs clear Cardiovascular: normal peripheral pulses, regular rhythm Abdomen: normal bowel sounds, non distended Skin: no ulcers Laboratory Tests 07/27/17 17:00: Vancomycin Level Trough 13.0H 07/28/17 04:50: White Blood Count 7.2, Red Blood Count 4.64L, Hemoglobin 16.0, Hematocrit 45.7, Mean Corpuscular Volume 99, Mean Corpuscular Hemoglobin 34.5H, Mean Corpuscular Hemoglobin Concent 35.0, Red Cell Distribution Width 9.9L, Platelet Count 190, Mean Platelet Volume 6.3L, Neutrophils (%) (Auto) 55.5, Lymphocytes (%) (Auto) 24.6, Monocytes (%) (Auto) 16.8H, Eosinophils (%) (Auto) 2.1, Basophils (%) ( Auto) 1.0, Erythrocyte Sedimentation Rate 20H, Sodium Level 136, Potassium Level 3.7, Chloride Level 97L, Carbon Dioxide Level 25, Anion Gap 14, Blood Urea Nitrogen 6L, Creatinine 0.9, Estimat Glomerular Filtration Rate > 60, Glucose Level 120H, Calcium Level 9.1, Phosphorus Level 3.0, Magnesium Level 2.1 , Total Bilirubin 0.4, Aspartate Amino Transf (AST/SGOT) 24, Alanine Aminotransferase (ALT/SGPT) 18, Alkaline Phosphatase 81, C-Reactive Protein, Quantitative 3.7H, Total Protein 7.2, Albumin 4.0, Globulin 3.2, Albumin/ Globulin Ratio 1.2 Current Medications Medications (Trade) Dose Ordered Sig/Kelvin Route PRN Reason Start Time Stop Time Status Last Admin Dose Admin Acetaminophen (Tylenol) 650 mg Q4H PRN ORAL fever 07/26/17 15:00 08/25/17 14:59 07/27/17 05:17 Acyclovir 750 mg/ Sodium Chloride 110 ml @ 110 mls/hr Q8H IV 07/28/17 00:00 08/27/17 00:00 07/28/17 10:27 Albuterol/ Ipratropium (DuoNeb 0.5-3(2.5)mg/3ml) 3 ml Q4H PRN HHN Shortness of Breath 07/26/17 15:00 07/31/17 14:59 Aspirin (ASA) 81 mg DAILY ORAL 07/28/17 09:00 08/27/17 08:59 Clopidogrel Bisulfate (Plavix) 75 mg DAILY ORAL 07/26/17 21:00 08/25/17 20:59 07/26/17 22:36 Dextrose (Dextrose 50%) STAT PRN IV Hypoglycemia 07/26/17 15:00 08/25/17 14:59 Heparin Sodium (Porcine) (Heparin 5000 units/ml) 5,000 units EVERY 12 HOURS SUBQ 07/26/17 21:00 08/25/17 20:59 07/27/17 20:47 Morphine Sulfate (Morphine Sulfate) 2 mg Q4H PRN IVP Moderate Pain (Pain Scale 4-6) 07/26/17 15:00 08/02/17 14:59 07/27/17 09:47 Nitroglycerin (Ntg) 0.4 mg Every 5 Minutes PRN SL Prn Chest Pain 07/26/17 15:00 08/25/17 14:59 Ondansetron HCl (Zofran) 4 mg Q6H PRN IVP Nausea & Vomiting 07/26/17 15:00 08/25/17 14:59 Patient Own Medication (Patient's Own Med) 1 ea DAILY ORAL 07/28/17 09:00 08/27/17 08:59 07/28/17 10:29 Patient Own Medication (Patient's Own Med) 1 ea DAILY ORAL 07/28/17 09:00 08/27/17 08:59 07/28/17 10:30 Polyethylene Glycol (Miralax) 17 gm DAILYPRN PRN ORAL Constipation 07/26/17 15:00 08/25/17 14:59 Temazepam (Restoril) 15 mg HSPRN PRN ORAL Insomnia 07/26/17 15:00 08/02/17 14:59 07/26/17 22:15 Tobramycin/ Dexamethasone (Tobradex Opth Susp) 1 drop FOUR TIMES A DAY LEFT EYE 07/26/17 22:00 08/25/17 21:59 07/28/17 12:48 Vancomycin HCl (Vanco rx to dose) 1 ea DAILY PRN MISC PRN RX PROTOCOL 07/26/17 17:00 08/25/17 16:59 Vancomycin HCl 1 gm/Dextrose 250 ml @ 167.007 mls/hr Q8HR@0200,1000,1800 IVPB 07/26/17 18:00 07/31/17 17:59 07/28/17 12:48 KOKO CHUA Jul 28, 2017 15:37
[2017-07-28 16:00] VITALS: BP 109/73
--- NOTE | 2017-07-28 18:37 | Infectious Diseases Prog Note ---
Assessment/Plan Assessment/Plan ASSESSMENT: The patient is a 47-year-old male with: History of human immunodeficiency virus (CD4 count over 400 and undetectable viral load) on HIV medication. Periorbital/facial cellulitis due to the fall and pain over the forehead. Wound over the forehead without drainage. Facial shingles History of heart condition, ? in nature of that. Hyperlipidemia. DM history of alcohol abuse. PLAN: will continue the patient on IV vancomycin d# 3 / and Acyclovir d# 2 / 10 , ( 07/27 : Cefepimed# 2 ) will resume his home HIV medication to resume.( Tivicay and Descovy ) Monitor CBC. Monitor BMP. Isolation ( contact and Airborne ) Subjective Constitutional: Denies: no symptoms, fever, chills, fatigue, anorexia, drenching sweats, other Allergies: Coded Allergies: NO KNOWN ALLERGIES (Verified Allergy, Unknown, 07/26/17) Objective Vital Signs Last 24 Hour Vital Signs Date Time Temp Pulse Resp B/P (MAP) Pulse Ox O2 Delivery O2 Flow Rate FiO2 07/28/17 16:00 98.4 85 18 109/73 98 Room Air 07/28/17 12:00 98.9 95 18 125/68 98 Room Air 07/28/17 08:00 98.8 98 18 120/71 98 Room Air 07/28/17 07:20 82 20 Room Air 21 07/28/17 04:00 98.6 86 20 114/72 97 Room Air 07/28/17 00:00 98.9 87 20 129/75 97 Room Air 07/27/17 20:27 100.0 88 20 124/82 99 Room Air 07/27/17 19:15 79 16 Room Air 07/27/17 19:02 97.9 Height (Feet): 5 Height (Inches): 5.00 Weight (Pounds): 130 HEENT: anicteric Respiratory/Chest: normal breath sounds Cardiovascular: regularly irregular Abdomen: non distended Laboratory Tests Test 07/28/17 04:50 White Blood Count 7.2 K/UL (4.8-10.8) Red Blood Count 4.64 M/UL (4.70-6.10) L Hemoglobin 16.0 G/DL (14.2-18.0) Hematocrit 45.7 % (42.0-52.0) Mean Corpuscular Volume 99 FL (80-99) Mean Corpuscular Hemoglobin 34.5 PG (27.0-31.0) H Mean Corpuscular Hemoglobin Concent 35.0 G/DL (32.0-36.0) Red Cell Distribution Width 9.9 % (11.6-14.8) L Platelet Count 190 K/UL (150-450) Mean Platelet Volume 6.3 FL (6.5-10.1) L Neutrophils (%) (Auto) 55.5 % (45.0-75.0) Lymphocytes (%) (Auto) 24.6 % (20.0-45.0) Monocytes (%) (Auto) 16.8 % (1.0-10.0) H Eosinophils (%) (Auto) 2.1 % (0.0-3.0) Basophils (%) (Auto) 1.0 % (0.0-2.0) Erythrocyte Sedimentation Rate 20 MM/HR (0-15) H Sodium Level 136 mEQ/L (135-145) Potassium Level 3.7 mEQ/L (3.4-4.9) Chloride Level 97 mEQ/L (98-107) L Carbon Dioxide Level 25 mEQ/L (20-30) Anion Gap 14 (5-15) Blood Urea Nitrogen 6 mg/dL (7-23) L Creatinine 0.9 mg/dL (0.7-1.2) Estimat Glomerular Filtration Rate > 60 mL/min (>60) Glucose Level 120 mg/dL (74-106) H Calcium Level 9.1 mg/dL (8.6-10.2) Phosphorus Level 3.0 mg/dL (2.5-4.8) Magnesium Level 2.1 mg/dL (1.7-2.5) Total Bilirubin 0.4 mg/dL (0.0-1.2) Aspartate Amino Transf (AST/SGOT) 24 U/L (5-40) Alanine Aminotransferase (ALT/SGPT) 18 U/L (3-41) Alkaline Phosphatase 81 U/L (40-129) C-Reactive Protein, Quantitative 3.7 mg/dL (< 0.5) H Total Protein 7.2 g/dL (6.6-8.7) Albumin 4.0 g/dL (3.5-5.2) Globulin 3.2 g/dL Albumin/Globulin Ratio 1.2 (1.0-2.7) Current Medications Medications (Trade) Dose Ordered Sig/Kelvin Route PRN Reason Start Time Stop Time Status Last Admin Dose Admin Acetaminophen (Tylenol) 650 mg Q4H PRN ORAL fever 07/26/17 15:00 08/25/17 14:59 07/27/17 05:17 Acyclovir 750 mg/ Sodium Chloride 275 ml @ 275 mls/hr Q8HR@0000,0800,1600 IV 07/29/17 00:00 08/28/17 00:00 Albuterol/ Ipratropium (DuoNeb 0.5-3(2.5)mg/3ml) 3 ml Q4H PRN HHN Shortness of Breath 07/26/17 15:00 07/31/17 14:59 Aspirin (ASA) 81 mg DAILY ORAL 07/28/17 09:00 08/27/17 08:59 Clopidogrel Bisulfate (Plavix) 75 mg DAILY ORAL 07/26/17 21:00 08/25/17 20:59 07/26/17 22:36 Dextrose (Dextrose 50%) STAT PRN IV Hypoglycemia 07/26/17 15:00 08/25/17 14:59 Heparin Sodium (Porcine) (Heparin 5000 units/ml) 5,000 units EVERY 12 HOURS SUBQ 07/26/17 21:00 08/25/17 20:59 07/27/17 20:47 Morphine Sulfate (Morphine Sulfate) 2 mg Q4H PRN IVP Moderate Pain (Pain Scale 4-6) 07/26/17 15:00 08/02/17 14:59 07/27/17 09:47 Nitroglycerin (Ntg) 0.4 mg Every 5 Minutes PRN SL Prn Chest Pain 07/26/17 15:00 08/25/17 14:59 Ondansetron HCl (Zofran) 4 mg Q6H PRN IVP Nausea & Vomiting 07/26/17 15:00 08/25/17 14:59 Patient Own Medication (Patient's Own Med) 1 ea DAILY ORAL 07/28/17 09:00 08/27/17 08:59 07/28/17 10:29 Patient Own Medication (Patient's Own Med) 1 ea DAILY ORAL 07/28/17 09:00 08/27/17 08:59 07/28/17 10:30 Polyethylene Glycol (Miralax) 17 gm DAILYPRN PRN ORAL Constipation 07/26/17 15:00 08/25/17 14:59 Temazepam (Restoril) 15 mg HSPRN PRN ORAL Insomnia 07/26/17 15:00 08/02/17 14:59 07/26/17 22:15 Tobramycin/ Dexamethasone (Tobradex Opth Susp) 1 drop FOUR TIMES A DAY LEFT EYE 07/26/17 22:00 08/25/17 21:59 07/28/17 12:48 Vancomycin HCl (Vanco rx to dose) 1 ea DAILY PRN MISC PRN RX PROTOCOL 07/26/17 17:00 08/25/17 16:59 Vancomycin HCl 1 gm/Dextrose 250 ml @ 167.007 mls/hr Q8HR@0200,1000,1800 IVPB 07/26/17 18:00 07/31/17 17:59 07/28/17 12:48 EMERITA CLAUDIO M.D. Jul 28, 2017 18:37
--- NOTE | 2017-07-28 19:17 | Internal Med Progress Note ---
Subjective Date of Service: Jul 28, 2017 Physician Name Michel Tinoco Attending Physician Ede Sheridan MD Current Medications Medications (Trade) Dose Ordered Sig/Kelvin Route PRN Reason Start Time Stop Time Status Last Admin Dose Admin Acetaminophen (Tylenol) 650 mg Q4H PRN ORAL fever 07/26/17 15:00 08/25/17 14:59 07/27/17 05:17 Acyclovir 750 mg/ Sodium Chloride 275 ml @ 275 mls/hr Q8HR@0000,0800,1600 IV 07/29/17 00:00 08/28/17 00:00 Albuterol/ Ipratropium (DuoNeb 0.5-3(2.5)mg/3ml) 3 ml Q4H PRN HHN Shortness of Breath 07/26/17 15:00 07/31/17 14:59 Aspirin (ASA) 81 mg DAILY ORAL 07/28/17 09:00 08/27/17 08:59 Calcium Carbonate (Tums) 500 mg DAILY ORAL 07/28/17 19:00 08/27/17 18:59 Clopidogrel Bisulfate (Plavix) 75 mg DAILY ORAL 07/26/17 21:00 08/25/17 20:59 07/26/17 22:36 Dextrose (Dextrose 50%) STAT PRN IV Hypoglycemia 07/26/17 15:00 08/25/17 14:59 Fish Oil (Fish Oil) 1,000 mg DAILY ORAL 07/28/17 19:30 08/27/17 19:29 Heparin Sodium (Porcine) (Heparin 5000 units/ml) 5,000 units EVERY 12 HOURS SUBQ 07/26/17 21:00 08/25/17 20:59 07/27/17 20:47 Morphine Sulfate (Morphine Sulfate) 2 mg Q4H PRN IVP Moderate Pain (Pain Scale 4-6) 07/26/17 15:00 08/02/17 14:59 07/27/17 09:47 Multivitamins Therapeutic (Therapeutic Multivitamin) 1 ea DAILY ORAL 07/28/17 19:30 08/27/17 19:29 Nitroglycerin (Ntg) 0.4 mg Every 5 Minutes PRN SL Prn Chest Pain 07/26/17 15:00 08/25/17 14:59 Ondansetron HCl (Zofran) 4 mg Q6H PRN IVP Nausea & Vomiting 07/26/17 15:00 08/25/17 14:59 Patient Own Medication (Patient's Own Med) 1 ea DAILY ORAL 07/28/17 09:00 08/27/17 08:59 07/28/17 10:29 Patient Own Medication (Patient's Own Med) 1 ea DAILY ORAL 07/28/17 09:00 08/27/17 08:59 07/28/17 10:30 Polyethylene Glycol (Miralax) 17 gm DAILYPRN PRN ORAL Constipation 07/26/17 15:00 08/25/17 14:59 Temazepam (Restoril) 15 mg HSPRN PRN ORAL Insomnia 07/26/17 15:00 08/02/17 14:59 07/26/17 22:15 Tobramycin/ Dexamethasone (Tobradex Opth Susp) 1 drop FOUR TIMES A DAY LEFT EYE 07/26/17 22:00 08/25/17 21:59 07/28/17 18:37 Vancomycin HCl (Vanco rx to dose) 1 ea DAILY PRN MISC PRN RX PROTOCOL 07/26/17 17:00 08/25/17 16:59 Vancomycin HCl 1 gm/Dextrose 250 ml @ 167.007 mls/hr Q8HR@0200,1000,1800 IVPB 07/26/17 18:00 07/31/17 17:59 07/28/17 18:37 Vitamin B Complex (Vitamin B Complex) 1 ea DAILY ORAL 07/28/17 19:30 08/27/17 19:29 Vitamin D (Vitamin D) 400 intlu DAILY ORAL 07/28/17 19:30 08/27/17 19:29 Allergies: Coded Allergies: NO KNOWN ALLERGIES (Verified Allergy, Unknown, 07/26/17) ROS Limited/Unobtainable: No Constitutional: Reports: no symptoms HEENT: Reports: eye pain, other - left eye swelling Cardiovascular: Reports: no symptoms Respiratory: Reports: no symptoms Gastrointestinal/Abdominal: Reports: no symptoms Genitourinary: Reports: no symptoms Neurologic/Psychiatric: Reports: no symptoms Subjective 47 YO M admitted with left eye pain and swelling. Now periorbital cellulitis. Cover for Int Med-Dr Sheridan Objective Last Vital Signs Date Time Temp Pulse Resp B/P (MAP) Pulse Ox O2 Delivery O2 Flow Rate FiO2 07/28/17 16:00 98.4 85 18 109/73 98 Room Air 07/28/17 07:20 21 Laboratory Tests Test 07/28/17 04:50 White Blood Count 7.2 K/UL (4.8-10.8) Red Blood Count 4.64 M/UL (4.70-6.10) L Hemoglobin 16.0 G/DL (14.2-18.0) Hematocrit 45.7 % (42.0-52.0) Mean Corpuscular Volume 99 FL (80-99) Mean Corpuscular Hemoglobin 34.5 PG (27.0-31.0) H Mean Corpuscular Hemoglobin Concent 35.0 G/DL (32.0-36.0) Red Cell Distribution Width 9.9 % (11.6-14.8) L Platelet Count 190 K/UL (150-450) Mean Platelet Volume 6.3 FL (6.5-10.1) L Neutrophils (%) (Auto) 55.5 % (45.0-75.0) Lymphocytes (%) (Auto) 24.6 % (20.0-45.0) Monocytes (%) (Auto) 16.8 % (1.0-10.0) H Eosinophils (%) (Auto) 2.1 % (0.0-3.0) Basophils (%) (Auto) 1.0 % (0.0-2.0) Erythrocyte Sedimentation Rate 20 MM/HR (0-15) H Sodium Level 136 mEQ/L (135-145) Potassium Level 3.7 mEQ/L (3.4-4.9) Chloride Level 97 mEQ/L (98-107) L Carbon Dioxide Level 25 mEQ/L (20-30) Anion Gap 14 (5-15) Blood Urea Nitrogen 6 mg/dL (7-23) L Creatinine 0.9 mg/dL (0.7-1.2) Estimat Glomerular Filtration Rate > 60 mL/min (>60) Glucose Level 120 mg/dL (74-106) H Calcium Level 9.1 mg/dL (8.6-10.2) Phosphorus Level 3.0 mg/dL (2.5-4.8) Magnesium Level 2.1 mg/dL (1.7-2.5) Total Bilirubin 0.4 mg/dL (0.0-1.2) Aspartate Amino Transf (AST/SGOT) 24 U/L (5-40) Alanine Aminotransferase (ALT/SGPT) 18 U/L (3-41) Alkaline Phosphatase 81 U/L (40-129) C-Reactive Protein, Quantitative 3.7 mg/dL (< 0.5) H Total Protein 7.2 g/dL (6.6-8.7) Albumin 4.0 g/dL (3.5-5.2) Globulin 3.2 g/dL Albumin/Globulin Ratio 1.2 (1.0-2.7) Intake and Output 07/28/17 07/29/17 19:00 07:00 Intake Total 1400 ml Balance 1400 ml Intake Oral 1400 ml # Voids 3 # Bowel Movements 1 Objective General Appearance: WD/WN, no apparent distress, alert EENT: PERRL/EOMI, other - Left periorbital swelling with versicles Neck: non-tender, normal alignment, supple, normal inspection Cardiovascular: normal peripheral pulses, normal rate, regular rhythm, regularly irregular, no gallop/murmur, no JVD Respiratory/Chest: chest wall non-tender, lungs clear, normal breath sounds, no respiratory distress, no accessory muscle use Abdomen: normal bowel sounds, non tender, soft, no organomegaly, no mass Extremities: normal range of motion 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 See ophthalmology note. Cont IV vanco adn cefepime. Cont tobradex eye drops (2) HIV (human immunodeficiency virus infection) Assessment & Plan: Cont HAART per ID (3) HTN (hypertension) (4) Hypercholesteremia (5) Coronary artery disease Assessment & Plan: Cont plavix and ASA. (6) Herpes zoster conjunctivitis, left eye Assessment & Plan: Cont IV acyclovir per ID Status: MICHEL Zamora Jul 28, 2017 19:17
[2017-07-28] MEDS: Vitamin D 400 INTLU TAB ORAL SCH (19:30)
[2017-07-28] MEDS: Multivitamin w/Minerals tab ORAL SCH (19:30)
[2017-07-28 20:00] VITALS: BP 116/73
[2017-07-28] MEDS: Tums 500mg ORAL SCH (20:57)
--- NOTE | 2017-07-28 23:55 | Cardiology Progress Note ---
Assessment/Plan Assessment/Plan 1. Chest pain, atypical, most likely secondary musculoskeletal wall trauma during his fall, no evidence of ST or T-wave abnormalities on the ECG, 2. CAD, s/p PCI x 4 stents, stable, continue dual antiplatelets in addition to statins. Will order lipid panel in am. 3. HIV disease 4. Left orbital cellulitis. Subjective Subjective Denies chest pain or SOB at this time. No cardiac events is noted. Objective Last 24 Hour Vital Signs Date Time Temp Pulse Resp B/P (MAP) Pulse Ox O2 Delivery O2 Flow Rate FiO2 07/28/17 20:50 84 18 Room Air 21 07/28/17 20:00 98.1 87 19 116/73 98 Room Air 07/28/17 16:00 98.4 85 18 109/73 98 Room Air 07/28/17 12:00 98.9 95 18 125/68 98 Room Air 07/28/17 08:00 98.8 98 18 120/71 98 Room Air 07/28/17 07:20 82 20 Room Air 21 07/28/17 04:00 98.6 86 20 114/72 97 Room Air 07/28/17 00:00 98.9 87 20 129/75 97 Room Air Intake and Output 07/28/17 07/29/17 19:00 07:00 Intake Total 1400 ml 250.000 ml Balance 1400 ml 250.000 ml Intake Oral 1400 ml IV Total 250.000 ml # Voids 3 # Bowel Movements 1 2D Echo: Mild global LV HK with LVEF ~45%, Mild LVH, E/A reversal, RVSP 16 mmHg Laboratory Tests Test 07/28/17 04:50 White Blood Count 7.2 K/UL (4.8-10.8) Red Blood Count 4.64 M/UL (4.70-6.10) L Hemoglobin 16.0 G/DL (14.2-18.0) Hematocrit 45.7 % (42.0-52.0) Mean Corpuscular Volume 99 FL (80-99) Mean Corpuscular Hemoglobin 34.5 PG (27.0-31.0) H Mean Corpuscular Hemoglobin Concent 35.0 G/DL (32.0-36.0) Red Cell Distribution Width 9.9 % (11.6-14.8) L Platelet Count 190 K/UL (150-450) Mean Platelet Volume 6.3 FL (6.5-10.1) L Neutrophils (%) (Auto) 55.5 % (45.0-75.0) Lymphocytes (%) (Auto) 24.6 % (20.0-45.0) Monocytes (%) (Auto) 16.8 % (1.0-10.0) H Eosinophils (%) (Auto) 2.1 % (0.0-3.0) Basophils (%) (Auto) 1.0 % (0.0-2.0) Erythrocyte Sedimentation Rate 20 MM/HR (0-15) H Sodium Level 136 mEQ/L (135-145) Potassium Level 3.7 mEQ/L (3.4-4.9) Chloride Level 97 mEQ/L (98-107) L Carbon Dioxide Level 25 mEQ/L (20-30) Anion Gap 14 (5-15) Blood Urea Nitrogen 6 mg/dL (7-23) L Creatinine 0.9 mg/dL (0.7-1.2) Estimat Glomerular Filtration Rate > 60 mL/min (>60) Glucose Level 120 mg/dL (74-106) H Calcium Level 9.1 mg/dL (8.6-10.2) Phosphorus Level 3.0 mg/dL (2.5-4.8) Magnesium Level 2.1 mg/dL (1.7-2.5) Total Bilirubin 0.4 mg/dL (0.0-1.2) Aspartate Amino Transf (AST/SGOT) 24 U/L (5-40) Alanine Aminotransferase (ALT/SGPT) 18 U/L (3-41) Alkaline Phosphatase 81 U/L (40-129) C-Reactive Protein, Quantitative 3.7 mg/dL (< 0.5) H Total Protein 7.2 g/dL (6.6-8.7) Albumin 4.0 g/dL (3.5-5.2) Globulin 3.2 g/dL Albumin/Globulin Ratio 1.2 (1.0-2.7) Objective HEENT: Atraumatic and normocephalic. Pupils are equal, round, and reactive to light and accommodation. Extraocular muscles are intact. There is swelling, edema, redness, and warmth associated with vesicular rash over the left frontal area of the scalp extending to the left temporal area. The entire left globe is edematous. Neck: JVP is less than 5 cm. No carotid bruits. Carotid upstrokes 2+ bilaterally. Cardiovascular: Normal S1 and S2. Regular rate and rhythm. No murmurs, gallops, or rubs. PMI is at the fourth intercostal space at the midclavicular line. Lungs: Clear to auscultation bilaterally. Abdomen: Soft, nontender, and nondistended. No hepatosplenomegaly.Positive bowel sounds. Extremities: No evidence of edema, clubbing, or cyanosis. SHELLIE ORTIZ Jul 28, 2017 23:55
[2017-07-28] MEDS: ACYCLOVIR IV SCH (23:57)
[2017-07-28] MEDS: NS IV SCH (23:57)
[2017-07-29 00:37] VITALS: BP 113/76
[2017-07-29 04:00] VITALS: BP_SYST 123; BP_SYST 128; BP_DIAS 75; BP_DIAS 82
[2017-07-29 07:10] LABS: BASOPHILS % (AUTO) 1.6 % (0.0-2.0); EOSINOPHILS % (AUTO) 6.6 % (0.0-3.0); LYMPHOCYTES % (AUTO) 36.2 % (20.0-45.0); MEAN CORPUSCULAR HEMOGLOBIN 34.5 PG (27.0-31.0); MEAN CORPUSCULAR HGB CONC 34.9 G/DL (32.0-36.0); MEAN CORPUSCULAR VOLUME 99 FL (80-99); MEAN PLATELET VOLUME 6.2 FL (6.5-10.1); MONOCYTES % (AUTO) 18.4 % (1.0-10.0); NEUTROPHILS % (AUTO) 37.3 % (45.0-75.0); PLATELET COUNT 207 K/UL (150-450); RED BLOOD COUNT 4.65 M/UL (4.70-6.10); RED CELL DISTRIBUTION WIDTH 10.1 % (11.6-14.8); WHITE BLOOD COUNT 6.1 K/UL (4.8-10.8)
[2017-07-29 07:23] LABS: ANION GAP 11 (5-15); CALCIUM 9.4 mg/dL (8.6-10.2); CARBON DIOXIDE 28 mEQ/L (20-30); CHLORIDE 100 mEQ/L (98-107); CREATININE 0.9 mg/dL (0.7-1.2); GLOMERULAR FILTRATION RATE > 60 mL/min (>60); HEMOLYSIS 4; POTASSIUM 3.8 mEQ/L (3.4-4.9); SODIUM 139 mEQ/L (135-145)
[2017-07-29] MEDS: ACYCLOVIR IV SCH ×3 (08:07→23:46)
[2017-07-29] MEDS: NS IV SCH ×3 (08:07→23:46)
[2017-07-29 08:37] VITALS: BP 109/70
[2017-07-29] MEDS: Aspirin Baby 81mg ORAL SCH (09:00)
[2017-07-29] MEDS: Tums 500mg ORAL SCH ×2 (09:00→10:03)
[2017-07-29] MEDS: Heparin 5000 units/ml inj SUBQ SCH ×3 (09:00→21:00)
[2017-07-29] MEDS: Tobradex Opth Susp 2.5ml LEFT EYE SCH ×4 (10:03→21:09)
[2017-07-29] MEDS: DESCOVY ORAL SCH (10:03)
[2017-07-29] MEDS: Multivitamin w/Minerals tab ORAL SCH (10:32)
[2017-07-29] MEDS: Vitamin D 400 INTLU TAB ORAL SCH (10:32)
--- NOTE | 2017-07-29 11:15 | Progress Note ---
DATE: 07/28/2017 OPHTHALMOLOGY PROGRESS NOTE Subjective: The patient is a 47-year-old male who has herpes zoster in the left forehead, left eye, and periocular area in B1 pattern. The patient states the left eye is feeling better and he is opening the eye more today. There is less photophobia and discharge. Objective: Visual acuity without correction is 20/50 in the right eye and 20/60 in the left eye. The pupils were 4 to 3 bilaterally without any pupillary defect. The extraocular motility was intact bilaterally without pain. No diplopia. The lens in the right eye were within normal limits and in the left eye there is marked decreased soft tissue swelling and erythema. The left forehead and scalp also had vesicle formation. Some of these were already crusting over and there was less erythema. None of the vesicles and erythema across the midline. The conjunctiva and sclera in the right eye were within normal limits and the injection in the left eye was markedly decreased. The cornea bilaterally is clear and the anterior chamber is deep and quiet bilaterally. The iris and lens were within normal limits bilaterally. ASSESSMENT/PLAN: 1. Herpes zoster cellulitis, left face in B1 pattern including periocular area. 2. Soft tissue swelling is markedly decreased and the patient opens his eye very easily now. The patient is to continue the TobraDex drops 4 times a day to the left eye as well as also to continue the intravenous vancomycin and acyclovir. Thank you very much for allowing me to participate in the care of this patient. If you have any questions, please do not hesitate to contact me. I will continue to follow him while he is in-house. Michel Sauer M.D. DR: YO JOB#: [id number] CC:
[2017-07-29 12:11] VITALS: BP 109/64
--- NOTE | 2017-07-29 15:00 | Pulmonology Progress Note ---
Assessment/Plan Problems: (1) Cellulitis (2) HIV disease Assessment/Plan opens the eye continue abc check electrolytes improving all reviewed keep isolation Subjective ROS Limited/Unobtainable: No Constitutional: Reports: no symptoms HEENT: Repors: no symptoms Respiratory: Reports: no symptoms Allergies: Coded Allergies: NO KNOWN ALLERGIES (Verified Allergy, Unknown, 07/26/17) Objective Last 24 Hour Vital Signs Date Time Temp Pulse Resp B/P (MAP) Pulse Ox O2 Delivery O2 Flow Rate FiO2 07/29/17 12:11 97.8 82 18 109/64 96 Room Air 07/29/17 08:37 97.6 78 19 109/70 97 Room Air 07/29/17 08:15 88 20 Room Air 07/29/17 04:00 97.3 73 18 123/75 98 Room Air 07/29/17 00:37 97.9 88 18 113/76 98 Room Air 07/28/17 20:50 84 18 Room Air 21 07/28/17 20:00 98.1 87 19 116/73 98 Room Air 07/28/17 16:00 98.4 85 18 109/73 98 Room Air Intake and Output 07/29/17 07/30/17 19:00 07:00 Intake Total 500 ml Output Total 520 ml Balance -20 ml Intake Oral 500 ml Output Urine Total 520 ml Objective feeling much better, can open the eye General Appearance: no acute distress HEENT: normocephalic Respiratory/Chest: chest wall non-tender, lungs clear Cardiovascular: normal peripheral pulses, normal rate Abdomen: normal bowel sounds, soft, non tender Laboratory Tests 07/29/17 04:30: White Blood Count 6.1, Red Blood Count 4.65L, Hemoglobin 16.0, Hematocrit 45.9, Mean Corpuscular Volume 99, Mean Corpuscular Hemoglobin 34.5H, Mean Corpuscular Hemoglobin Concent 34.9, Red Cell Distribution Width 10.1L, Platelet Count 207, Mean Platelet Volume 6.2L, Neutrophils (%) (Auto) 37.3L, Lymphocytes (%) (Auto) 36.2, Monocytes (%) (Auto) 18.4H, Eosinophils (%) (Auto) 6.6H, Basophils (%) ( Auto) 1.6, Sodium Level 139, Potassium Level 3.8, Chloride Level 100, Carbon Dioxide Level 28, Anion Gap 11, Blood Urea Nitrogen 10, Creatinine 0.9, Estimat Glomerular Filtration Rate > 60, Glucose Level 118H, Calcium Level 9.4 Current Medications Medications (Trade) Dose Ordered Sig/Kelvin Route PRN Reason Start Time Stop Time Status Last Admin Dose Admin Acetaminophen (Tylenol) 650 mg Q4H PRN ORAL fever 07/26/17 15:00 08/25/17 14:59 07/27/17 05:17 Acyclovir 750 mg/ Sodium Chloride 275 ml @ 275 mls/hr Q8HR@0000,0800,1600 IV 07/29/17 00:00 08/28/17 00:00 07/29/17 08:07 Albuterol/ Ipratropium (DuoNeb 0.5-3(2.5)mg/3ml) 3 ml Q4H PRN HHN Shortness of Breath 07/26/17 15:00 07/31/17 14:59 Aspirin (ASA) 81 mg DAILY ORAL 07/28/17 09:00 08/27/17 08:59 07/29/17 09:00 Calcium Carbonate (Tums) 500 mg DAILY ORAL 07/28/17 19:00 08/27/17 18:59 07/28/17 20:57 Clopidogrel Bisulfate (Plavix) 75 mg DAILY ORAL 07/26/17 21:00 08/25/17 20:59 07/26/17 22:36 Dextrose (Dextrose 50%) STAT PRN IV Hypoglycemia 07/26/17 15:00 08/25/17 14:59 Fish Oil (Fish Oil) 1,000 mg DAILY ORAL 07/28/17 19:30 08/27/17 19:29 07/29/17 10:31 Heparin Sodium (Porcine) (Heparin 5000 units/ml) 5,000 units EVERY 12 HOURS SUBQ 07/26/17 21:00 08/25/17 20:59 07/27/17 20:47 Morphine Sulfate (Morphine Sulfate) 2 mg Q4H PRN IVP Moderate Pain (Pain Scale 4-6) 07/26/17 15:00 08/02/17 14:59 07/27/17 09:47 Multivitamins Therapeutic (Therapeutic Multivitamin) 1 ea DAILY ORAL 07/28/17 19:30 08/27/17 19:29 07/29/17 10:32 Nitroglycerin (Ntg) 0.4 mg Every 5 Minutes PRN SL Prn Chest Pain 07/26/17 15:00 08/25/17 14:59 Ondansetron HCl (Zofran) 4 mg Q6H PRN IVP Nausea & Vomiting 07/26/17 15:00 08/25/17 14:59 Patient Own Medication (Patient's Own Med) 1 ea DAILY ORAL 07/28/17 09:00 08/27/17 08:59 07/29/17 10:03 Patient Own Medication (Patient's Own Med) 1 ea DAILY ORAL 07/28/17 09:00 08/27/17 08:59 07/29/17 10:03 Polyethylene Glycol (Miralax) 17 gm DAILYPRN PRN ORAL Constipation 07/26/17 15:00 08/25/17 14:59 Temazepam (Restoril) 15 mg HSPRN PRN ORAL Insomnia 07/26/17 15:00 08/02/17 14:59 07/28/17 20:57 Tobramycin/ Dexamethasone (Tobradex Opth Susp) 1 drop FOUR TIMES A DAY LEFT EYE 07/26/17 22:00 08/25/17 21:59 07/29/17 13:26 Vancomycin HCl (Vanco rx to dose) 1 ea DAILY PRN MISC PRN RX PROTOCOL 07/26/17 17:00 08/25/17 16:59 Vancomycin HCl 1 gm/Dextrose 250 ml @ 167.007 mls/hr Q8HR@0200,1000,1800 IVPB 07/26/17 18:00 07/31/17 17:59 07/29/17 10:08 Vitamin B Complex (Vitamin B Complex) 1 ea DAILY ORAL 07/28/17 19:30 08/27/17 19:29 07/29/17 10:32 Vitamin D (Vitamin D) 400 intlu DAILY ORAL 07/28/17 19:30 08/27/17 19:29 07/29/17 10:32 KOKO CHUA Jul 29, 2017 15:00
[2017-07-29 16:00] VITALS: BP 116/69
--- NOTE | 2017-07-29 18:26 | Internal Med Progress Note ---
Subjective Date of Service: Jul 29, 2017 Physician Name April Tinoco Attending Physician Ede Sheridan MD Current Medications Medications (Trade) Dose Ordered Sig/Kelvin Route PRN Reason Start Time Stop Time Status Last Admin Dose Admin Acetaminophen (Tylenol) 650 mg Q4H PRN ORAL fever 07/26/17 15:00 08/25/17 14:59 07/27/17 05:17 Acyclovir 750 mg/ Sodium Chloride 275 ml @ 275 mls/hr Q8HR@0000,0800,1600 IV 07/29/17 00:00 08/28/17 00:00 07/29/17 16:13 Albuterol/ Ipratropium (DuoNeb 0.5-3(2.5)mg/3ml) 3 ml Q4H PRN HHN Shortness of Breath 07/26/17 15:00 07/31/17 14:59 Aspirin (ASA) 81 mg DAILY ORAL 07/28/17 09:00 08/27/17 08:59 07/29/17 09:00 Calcium Carbonate (Tums) 500 mg DAILY ORAL 07/28/17 19:00 08/27/17 18:59 07/28/17 20:57 Clopidogrel Bisulfate (Plavix) 75 mg DAILY ORAL 07/26/17 21:00 08/25/17 20:59 07/26/17 22:36 Dextrose (Dextrose 50%) STAT PRN IV Hypoglycemia 07/26/17 15:00 08/25/17 14:59 Fish Oil (Fish Oil) 1,000 mg DAILY ORAL 07/28/17 19:30 08/27/17 19:29 07/29/17 10:31 Heparin Sodium (Porcine) (Heparin 5000 units/ml) 5,000 units EVERY 12 HOURS SUBQ 07/26/17 21:00 08/25/17 20:59 07/27/17 20:47 Losartan Potassium (Cozaar) 50 mg DAILY ORAL 07/30/17 09:00 08/29/17 08:59 Morphine Sulfate (Morphine Sulfate) 2 mg Q4H PRN IVP Moderate Pain (Pain Scale 4-6) 07/26/17 15:00 08/02/17 14:59 07/27/17 09:47 Multivitamins Therapeutic (Therapeutic Multivitamin) 1 ea DAILY ORAL 07/28/17 19:30 08/27/17 19:29 07/29/17 10:32 Nitroglycerin (Ntg) 0.4 mg Every 5 Minutes PRN SL Prn Chest Pain 07/26/17 15:00 08/25/17 14:59 Ondansetron HCl (Zofran) 4 mg Q6H PRN IVP Nausea & Vomiting 07/26/17 15:00 08/25/17 14:59 Patient Own Medication (Patient's Own Med) 1 ea DAILY ORAL 07/28/17 09:00 08/27/17 08:59 07/29/17 10:03 Patient Own Medication (Patient's Own Med) 1 ea DAILY ORAL 07/28/17 09:00 08/27/17 08:59 07/29/17 10:03 Polyethylene Glycol (Miralax) 17 gm DAILYPRN PRN ORAL Constipation 07/26/17 15:00 08/25/17 14:59 Pravastatin Sodium (Pravachol) 40 mg BEDTIME ORAL 07/29/17 21:00 08/28/17 20:59 Temazepam (Restoril) 15 mg HSPRN PRN ORAL Insomnia 07/26/17 15:00 08/02/17 14:59 07/28/17 20:57 Tobramycin/ Dexamethasone (Tobradex Opth Susp) 1 drop FOUR TIMES A DAY LEFT EYE 07/26/17 22:00 08/25/17 21:59 07/29/17 17:39 Vancomycin HCl (Vanco rx to dose) 1 ea DAILY PRN MISC PRN RX PROTOCOL 07/26/17 17:00 08/25/17 16:59 Vancomycin HCl 1 gm/Dextrose 250 ml @ 167.007 mls/hr Q8HR@0200,1000,1800 IVPB 07/26/17 18:00 07/31/17 17:59 07/29/17 17:37 Vitamin B Complex (Vitamin B Complex) 1 ea DAILY ORAL 07/28/17 19:30 08/27/17 19:29 07/29/17 10:32 Vitamin D (Vitamin D) 400 intlu DAILY ORAL 07/28/17 19:30 08/27/17 19:29 07/29/17 10:32 Allergies: Coded Allergies: NO KNOWN ALLERGIES (Verified Allergy, Unknown, 07/26/17) ROS Limited/Unobtainable: No Constitutional: Reports: no symptoms HEENT: Reports: no symptoms Cardiovascular: Reports: no symptoms Respiratory: Reports: no symptoms Gastrointestinal/Abdominal: Reports: no symptoms Genitourinary: Reports: no symptoms Neurologic/Psychiatric: Reports: no symptoms Subjective 47 YO M admitted with left eye pain and swelling. Now periorbital cellulitis. Cover for Int Jaciel-Dr Sheridan Objective Last Vital Signs Date Time Temp Pulse Resp B/P (MAP) Pulse Ox O2 Delivery O2 Flow Rate FiO2 07/29/17 16:00 97.3 69 20 116/69 98 Room Air 07/28/17 20:50 21 Laboratory Tests Test 07/29/17 04:30 White Blood Count 6.1 K/UL (4.8-10.8) Red Blood Count 4.65 M/UL (4.70-6.10) L Hemoglobin 16.0 G/DL (14.2-18.0) Hematocrit 45.9 % (42.0-52.0) Mean Corpuscular Volume 99 FL (80-99) Mean Corpuscular Hemoglobin 34.5 PG (27.0-31.0) H Mean Corpuscular Hemoglobin Concent 34.9 G/DL (32.0-36.0) Red Cell Distribution Width 10.1 % (11.6-14.8) L Platelet Count 207 K/UL (150-450) Mean Platelet Volume 6.2 FL (6.5-10.1) L Neutrophils (%) (Auto) 37.3 % (45.0-75.0) L Lymphocytes (%) (Auto) 36.2 % (20.0-45.0) Monocytes (%) (Auto) 18.4 % (1.0-10.0) H Eosinophils (%) (Auto) 6.6 % (0.0-3.0) H Basophils (%) (Auto) 1.6 % (0.0-2.0) Sodium Level 139 mEQ/L (135-145) Potassium Level 3.8 mEQ/L (3.4-4.9) Chloride Level 100 mEQ/L (98-107) Carbon Dioxide Level 28 mEQ/L (20-30) Anion Gap 11 (5-15) Blood Urea Nitrogen 10 mg/dL (7-23) Creatinine 0.9 mg/dL (0.7-1.2) Estimat Glomerular Filtration Rate > 60 mL/min (>60) Glucose Level 118 mg/dL (74-106) H Calcium Level 9.4 mg/dL (8.6-10.2) Intake and Output 07/29/17 07/30/17 19:00 07:00 Intake Total 500 ml Output Total 520 ml Balance -20 ml Intake Oral 500 ml Output Urine Total 520 ml Objective General Appearance: WD/WN, no apparent distress, alert EENT: PERRL/EOMI, other - Left periorbital swelling with versicles Neck: non-tender, normal alignment, supple, normal inspection Cardiovascular: normal peripheral pulses, normal rate, regular rhythm, regularly irregular, no gallop/murmur, no JVD Respiratory/Chest: chest wall non-tender, lungs clear, normal breath sounds, no respiratory distress, no accessory muscle use Abdomen: normal bowel sounds, non tender, soft, no organomegaly, no mass Extremities: normal range of motion 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 See ophthalmology note. Cont IV vanco and cefepime D# 4/7. Cont tobradex eye drops (2) HIV (human immunodeficiency virus infection) Assessment & Plan: Cont HAART per ID (3) HTN (hypertension) (4) Hypercholesteremia (5) Coronary artery disease Assessment & Plan: Cont plavix and ASA. (6) Herpes zoster conjunctivitis, left eye Assessment & Plan: Cont IV acyclovir for 10 days (10) per ID Status: APRIL Zamora Jul 29, 2017 18:26
[2017-07-29 20:00] VITALS: BP 123/76
[2017-07-30] VITALS: BP 113/76
[2017-07-30 04:24] VITALS: BP 115/70
[2017-07-30 08:00] VITALS: BP 126/76
--- NOTE | 2017-07-30 08:00 | Cardiology Progress Note ---
Assessment/Plan Assessment/Plan 1. Chest pain, atypical, most likely secondary musculoskeletal wall trauma during his fall, no evidence of ST or T-wave abnormalities on the ECG, 2. CAD, s/p PCI x 4 stents, stable, continue dual antiplatelets in addition to statins. 3. Mild LV systolic dysfunction, possible etiologies, ischemic CM in view of underlying CAD and hx of PCI or hypertensive CM, LVEF ~45%, double product control, secondary CAD preventive measures. 4. Left orbital cellulitis. 5. HIV disease Subjective Subjective Denies chest pain or SOB at this time. Not on the telemetry unit. Objective Last 24 Hour Vital Signs Date Time Temp Pulse Resp B/P (MAP) Pulse Ox O2 Delivery O2 Flow Rate FiO2 07/30/17 04:24 98.0 71 18 115/70 95 Room Air 07/30/17 00:00 97.9 89 18 113/76 99 Room Air 07/29/17 20:00 97.4 73 18 123/76 96 Room Air 07/29/17 16:00 97.3 69 20 116/69 98 Room Air 07/29/17 12:11 97.8 82 18 109/64 96 Room Air 07/29/17 08:37 97.6 78 19 109/70 97 Room Air 07/29/17 08:15 88 20 Room Air 2D Echo: Mild global LV HK with LVEF ~45%, Mild LVH, E/A reversal, RVSP 16 mmHg Objective HEENT: Atraumatic and normocephalic. Pupils are equal, round, and reactive to light and accommodation. Extraocular muscles are intact. There is swelling, edema, redness, and warmth associated with vesicular rash over the left frontal area of the scalp extending to the left temporal area. The entire left globe is edematous. Neck: JVP is less than 5 cm. No carotid bruits. Carotid upstrokes 2+ bilaterally. Cardiovascular: Normal S1 and S2. Regular rate and rhythm. No murmurs, gallops, or rubs. PMI is at the fourth intercostal space at the midclavicular line. Lungs: Clear to auscultation bilaterally. Abdomen: Soft, nontender, and nondistended. No hepatosplenomegaly.Positive bowel sounds. Extremities: No evidence of edema, clubbing, or cyanosis. SHELLIE ORTIZ Jul 30, 2017 08:00
[2017-07-30] MEDS: NS IV SCH (08:18)
[2017-07-30] MEDS: ACYCLOVIR IV SCH (08:18)
[2017-07-30] MEDS: Heparin 5000 units/ml inj SUBQ SCH (09:00)
[2017-07-30] MEDS: Tums 500mg ORAL SCH ×2 (09:00→09:08)
[2017-07-30] MEDS ORDERED: Losartan 50mg tab ORAL SCH (09:00)
[2017-07-30] MEDS: Vitamin D 400 INTLU TAB ORAL SCH (09:08)
[2017-07-30] MEDS: Tobradex Opth Susp 2.5ml LEFT EYE SCH ×2 (09:08→13:29)
[2017-07-30] MEDS: Multivitamin w/Minerals tab ORAL SCH (09:09)
[2017-07-30] MEDS: DESCOVY ORAL SCH (09:10)
[2017-07-30] MEDS: Aspirin Baby 81mg ORAL SCH (09:17)
--- NOTE | 2017-07-30 11:16 | Infectious Diseases Prog Note ---
Assessment/Plan Assessment/Plan ASSESSMENT: The patient is a 47-year-old male with: History of human immunodeficiency virus (CD4 count over 400 and undetectable viral load) on HIV medication. Periorbital/facial cellulitis due to the fall and pain over the forehead. Wound over the forehead without drainage. Facial shingles History of heart condition, ? in nature of that. Hyperlipidemia. DM history of alcohol abuse. PLAN: will continue the patient on IV vancomycin d# 5 and Acyclovir d# 4 / 10 , upon Dc will con pt on oral Bactrim, Keflex and Acyclovir x 1 wk ( Rx in chart ) ( 07/27 : Cefepimed# 2 ) will resume his home HIV medication to resume.( Ghanshyam and Demetrius ) Monitor CBC. Monitor BMP. Isolation (contact and Airborne ) Subjective Constitutional: Denies: no symptoms, fever, chills, fatigue, anorexia, drenching sweats, other Allergies: Coded Allergies: NO KNOWN ALLERGIES (Verified Allergy, Unknown, 07/26/17) Objective Vital Signs Last 24 Hour Vital Signs Date Time Temp Pulse Resp B/P (MAP) Pulse Ox O2 Delivery O2 Flow Rate FiO2 07/30/17 09:09 126/76 07/30/17 09:04 73 18 Room Air 07/30/17 08:00 98.6 71 20 126/76 99 Room Air 07/30/17 04:24 98.0 71 18 115/70 95 Room Air 07/30/17 00:00 97.9 89 18 113/76 99 Room Air 07/29/17 20:00 97.4 73 18 123/76 96 Room Air 07/29/17 16:00 97.3 69 20 116/69 98 Room Air 07/29/17 12:11 97.8 82 18 109/64 96 Room Air Height (Feet): 5 Height (Inches): 5.00 Weight (Pounds): 130 HEENT: anicteric Respiratory/Chest: normal breath sounds Cardiovascular: normal rate Abdomen: no organomegaly Current Medications Medications (Trade) Dose Ordered Sig/Kelvin Route PRN Reason Start Time Stop Time Status Last Admin Dose Admin Acetaminophen (Tylenol) 650 mg Q4H PRN ORAL fever 07/26/17 15:00 08/25/17 14:59 07/27/17 05:17 Acyclovir 750 mg/ Sodium Chloride 275 ml @ 275 mls/hr Q8HR@0000,0800,1600 IV 07/29/17 00:00 08/28/17 00:00 07/30/17 08:18 Albuterol/ Ipratropium (DuoNeb 0.5-3(2.5)mg/3ml) 3 ml Q4H PRN HHN Shortness of Breath 07/26/17 15:00 07/31/17 14:59 Aspirin (ASA) 81 mg DAILY ORAL 07/28/17 09:00 08/27/17 08:59 07/30/17 09:17 Calcium Carbonate (Tums) 500 mg DAILY ORAL 07/28/17 19:00 08/27/17 18:59 07/28/17 20:57 Clopidogrel Bisulfate (Plavix) 75 mg DAILY ORAL 07/26/17 21:00 08/25/17 20:59 07/26/17 22:36 Dextrose (Dextrose 50%) STAT PRN IV Hypoglycemia 07/26/17 15:00 08/25/17 14:59 Fish Oil (Fish Oil) 1,000 mg DAILY ORAL 07/28/17 19:30 08/27/17 19:29 07/30/17 09:08 Heparin Sodium (Porcine) (Heparin 5000 units/ml) 5,000 units EVERY 12 HOURS SUBQ 07/26/17 21:00 08/25/17 20:59 07/27/17 20:47 Losartan Potassium (Cozaar) 50 mg DAILY ORAL 07/30/17 09:00 08/29/17 08:59 07/30/17 09:09 Morphine Sulfate (Morphine Sulfate) 2 mg Q4H PRN IVP Moderate Pain (Pain Scale 4-6) 07/26/17 15:00 08/02/17 14:59 07/27/17 09:47 Multivitamins Therapeutic (Therapeutic Multivitamin) 1 ea DAILY ORAL 07/28/17 19:30 08/27/17 19:29 07/30/17 09:09 Nitroglycerin (Ntg) 0.4 mg Every 5 Minutes PRN SL Prn Chest Pain 07/26/17 15:00 08/25/17 14:59 Ondansetron HCl (Zofran) 4 mg Q6H PRN IVP Nausea & Vomiting 07/26/17 15:00 08/25/17 14:59 Patient Own Medication (Patient's Own Med) 1 ea DAILY ORAL 07/28/17 09:00 08/27/17 08:59 07/30/17 09:08 Patient Own Medication (Patient's Own Med) 1 ea DAILY ORAL 07/28/17 09:00 08/27/17 08:59 07/30/17 09:10 Polyethylene Glycol (Miralax) 17 gm DAILYPRN PRN ORAL Constipation 07/26/17 15:00 08/25/17 14:59 Pravastatin Sodium (Pravachol) 40 mg BEDTIME ORAL 07/29/17 21:00 08/28/17 20:59 07/29/17 21:09 Temazepam (Restoril) 15 mg HSPRN PRN ORAL Insomnia 07/26/17 15:00 08/02/17 14:59 07/29/17 21:18 Tobramycin/ Dexamethasone (Tobradex Opth Susp) 1 drop FOUR TIMES A DAY LEFT EYE 07/26/17 22:00 08/25/17 21:59 07/30/17 09:08 Vancomycin HCl (Vanco rx to dose) 1 ea DAILY PRN MISC PRN RX PROTOCOL 07/26/17 17:00 08/25/17 16:59 Vancomycin HCl 1 gm/Dextrose 250 ml @ 167.007 mls/hr Q8HR@0200,1000,1800 IVPB 07/26/17 18:00 07/31/17 17:59 07/30/17 10:31 Vitamin B Complex (Vitamin B Complex) 1 ea DAILY ORAL 07/28/17 19:30 08/27/17 19:29 07/30/17 09:08 Vitamin D (Vitamin D) 400 intlu DAILY ORAL 07/28/17 19:30 08/27/17 19:29 07/30/17 09:08 EMERITA CLAUDIO M.D. Jul 30, 2017 11:16
[2017-07-30 12:00] VITALS: BP 116/80
[2017-07-30] MEDS ORDERED: BACTRIM DS TAB1 EAC1 ORAL (14:21)
[2017-07-30] MEDS ORDERED: CEPHALEXIN500 MG ORAL (14:22)
[2017-07-30] MEDS ORDERED: ACYCLOVIR400 MG ORAL (14:23)
--- NOTE | 2017-07-30 14:40 | Pulmonology Progress Note ---
Assessment/Plan Problems: (1) Cellulitis (2) HIV disease Assessment/Plan opens the eye continue abc check electrolytes improving all reviewed dc home with close f/u Subjective ROS Limited/Unobtainable: No Constitutional: Reports: no symptoms Respiratory: Reports: no symptoms Allergies: Coded Allergies: NO KNOWN ALLERGIES (Verified Allergy, Unknown, 07/26/17) Objective Last 24 Hour Vital Signs Date Time Temp Pulse Resp B/P (MAP) Pulse Ox O2 Delivery O2 Flow Rate FiO2 07/30/17 12:00 97.5 87 20 116/80 99 Room Air 07/30/17 09:09 126/76 07/30/17 09:04 73 18 Room Air 07/30/17 08:00 98.6 71 20 126/76 99 Room Air 07/30/17 04:24 98.0 71 18 115/70 95 Room Air 07/30/17 00:00 97.9 89 18 113/76 99 Room Air 07/29/17 20:00 97.4 73 18 123/76 96 Room Air 07/29/17 16:00 97.3 69 20 116/69 98 Room Air Objective feeling much better, can open the eye Current Medications Medications (Trade) Dose Ordered Sig/Kelvin Route PRN Reason Start Time Stop Time Status Last Admin Dose Admin Acetaminophen (Tylenol) 650 mg Q4H PRN ORAL fever 07/26/17 15:00 08/25/17 14:59 07/27/17 05:17 Acyclovir 750 mg/ Sodium Chloride 275 ml @ 275 mls/hr Q8HR@0000,0800,1600 IV 07/29/17 00:00 08/28/17 00:00 07/30/17 08:18 Albuterol/ Ipratropium (DuoNeb 0.5-3(2.5)mg/3ml) 3 ml Q4H PRN HHN Shortness of Breath 07/26/17 15:00 07/31/17 14:59 Aspirin (ASA) 81 mg DAILY ORAL 07/28/17 09:00 08/27/17 08:59 07/30/17 09:17 Calcium Carbonate (Tums) 500 mg DAILY ORAL 07/28/17 19:00 08/27/17 18:59 07/28/17 20:57 Clopidogrel Bisulfate (Plavix) 75 mg DAILY ORAL 07/26/17 21:00 08/25/17 20:59 07/26/17 22:36 Dextrose (Dextrose 50%) STAT PRN IV Hypoglycemia 07/26/17 15:00 08/25/17 14:59 Fish Oil (Fish Oil) 1,000 mg DAILY ORAL 07/28/17 19:30 08/27/17 19:29 07/30/17 09:08 Heparin Sodium (Porcine) (Heparin 5000 units/ml) 5,000 units EVERY 12 HOURS SUBQ 07/26/17 21:00 08/25/17 20:59 07/27/17 20:47 Losartan Potassium (Cozaar) 50 mg DAILY ORAL 07/30/17 09:00 08/29/17 08:59 07/30/17 09:09 Morphine Sulfate (Morphine Sulfate) 2 mg Q4H PRN IVP Moderate Pain (Pain Scale 4-6) 07/26/17 15:00 08/02/17 14:59 07/27/17 09:47 Multivitamins Therapeutic (Therapeutic Multivitamin) 1 ea DAILY ORAL 07/28/17 19:30 08/27/17 19:29 07/30/17 09:09 Nitroglycerin (Ntg) 0.4 mg Every 5 Minutes PRN SL Prn Chest Pain 07/26/17 15:00 08/25/17 14:59 Ondansetron HCl (Zofran) 4 mg Q6H PRN IVP Nausea & Vomiting 07/26/17 15:00 08/25/17 14:59 Patient Own Medication (Patient's Own Med) 1 ea DAILY ORAL 07/28/17 09:00 08/27/17 08:59 07/30/17 09:08 Patient Own Medication (Patient's Own Med) 1 ea DAILY ORAL 07/28/17 09:00 08/27/17 08:59 07/30/17 09:10 Polyethylene Glycol (Miralax) 17 gm DAILYPRN PRN ORAL Constipation 07/26/17 15:00 08/25/17 14:59 Pravastatin Sodium (Pravachol) 40 mg BEDTIME ORAL 07/29/17 21:00 08/28/17 20:59 07/29/17 21:09 Temazepam (Restoril) 15 mg HSPRN PRN ORAL Insomnia 07/26/17 15:00 08/02/17 14:59 07/29/17 21:18 Tobramycin/ Dexamethasone (Tobradex Opth Susp) 1 drop FOUR TIMES A DAY LEFT EYE 07/26/17 22:00 08/25/17 21:59 07/30/17 13:29 Vancomycin HCl (Vanco rx to dose) 1 ea DAILY PRN MISC PRN RX PROTOCOL 07/26/17 17:00 08/25/17 16:59 Vancomycin HCl 1 gm/Dextrose 250 ml @ 167.007 mls/hr Q8HR@0200,1000,1800 IVPB 07/26/17 18:00 07/31/17 17:59 07/30/17 10:31 Vitamin B Complex (Vitamin B Complex) 1 ea DAILY ORAL 07/28/17 19:30 08/27/17 19:29 07/30/17 09:08 Vitamin D (Vitamin D) 400 intlu DAILY ORAL 07/28/17 19:30 08/27/17 19:29 07/30/17 09:08 KOKO CHUA Jul 30, 2017 14:40
[2017-07-30] MEDS ORDERED: Tubing IV Secondary IV ONE (16:06)
[2017-07-30] MEDS ORDERED: NS 550ML IV ONE (16:06)
--- NOTE | 2017-07-30 17:04 | Discharge Summary ---
Discharge Summary Hospital Course Date of Admission Jul 26, 2017 at 14:09 Date of Discharge Jul 30, 2017 at 16:07 Admitting Diagnosis DORCAS Price is a 47 year old male who was admitted on Jul 26, 2017 at 14: 09 for Cellulitis Hospital Course Last 24 Hour Vital Signs Date Time Temp Pulse Resp B/P (MAP) Pulse Ox O2 Delivery O2 Flow Rate FiO2 07/30/17 12:00 97.5 87 20 116/80 99 Room Air 07/30/17 09:09 126/76 07/30/17 09:04 73 18 Room Air 07/30/17 08:00 98.6 71 20 126/76 99 Room Air 07/30/17 04:24 98.0 71 18 115/70 95 Room Air 07/30/17 00:00 97.9 89 18 113/76 99 Room Air 07/29/17 20:00 97.4 73 18 123/76 96 Room Air seen at bedside discharge summary dictated job # [id number] Discharge Discharge Disposition Patient was discharged to Home with Home Health(06) Discharge Diagnoses: Ede Sheridan MD Jul 30, 2017 17:04
--- NOTE | 2017-08-01 23:19 | Diagnostic Imaging Report ---
APPROVED REPORT CPT Code: 17435 Present Symptoms Lower Extremity Pain: BILATERAL: Imaging reveals a patent deep venous system bilaterally. There is no evidence of thrombus within the femoral, popliteal or tibial segments. The greater saphenous veins are also within normal limits. Doppler indicates normal spontaneous flow within these segments.
--- NOTE | 2017-08-02 09:16 | Discharge Summary ---
DATE OF ADMISSION: 07/26/2017 DATE OF DISCHARGE: 07/30/2017 Hospital Course: This is a 47-year-old gentleman with past medical history significant for human immunodeficiency virus, diagnosed in 1989, history of prediabetic, dyslipidemia, hypertension, and coronary artery disease status post stent placement x4, who has presented to the hospital initially in [facility] and complained about left eye sting as painful. Shortly after initial evaluation, the patient was diagnosed with a left periorbital cellulitis and the patient was subsequently transferred to [facility] for further evaluation and workup. Shortly after initial evaluation, the patient was counseled by Dr. Sauer from Neurology, and Dr. Green from Infectious Disease, Dr. Sims from Pulmonary Critical Care. The patient was treated for periorbital as well as facial cellulitis due to the fall and pain over the forehead and facial shingles. The patient's status improved after broad-spectrum antibiotics with vancomycin, acyclovir, and cefepime. The patient subsequently was discharged on oral Bactrim, Keflex, and acyclovir to be followed by as an outpatient. FINAL DIAGNOSES: 1. Human immunodeficiency virus. 2. Periorbital facial cellulitis due to the fall and pain over the forehead. 3. Wound over forehead without drainage. 4. Facial shingles. 5. Prediabetic. 6. Dyslipidemia. 7. Hypertension. 8. Coronary artery disease status post stent. MEDICATION ON DISCHARGE: Continue discharge medication list. ACTIVITY: As tolerated. DIET: Would be a cardiac diet. Followup: The patient was advised to follow up with the learning and development manager within one to two weeks. Ede Sheridan M.D. DR: ANTHONY JOB#: [id number] CC:
== END 2017-07-30 16:07 | disposition home or self-care (01) | DRG 602 ==
LOC: 4E 14:09
DX: L03.213 Periorbital cellulitis (principal); B20 Human immunodeficiency virus [HIV] disease; B02.8 Zoster with other complications; I10 Essential (primary) hypertension; E78.00 Pure hypercholesterolemia, unspecified; I25.10 Atherosclerotic heart disease of native coronary artery without angina pectoris; Z95.5 Presence of coronary angioplasty implant and graft; S00.81XA Abrasion of other part of head, initial encounter; W22.8XXA Striking against or struck by other objects, initial encounter; Z79.02 Long term (current) use of antithrombotics/antiplatelets; H10.9 Unspecified conjunctivitis; R07.89 Other chest pain
CPT/HCPCS: 36415; 80048; 80053; 80202; 82962; 83735; 84100; 84484; 85025; 85651; 86140; 93005; 93306; 93970; 94664